=== PATIENT | female | born 1960 | race Caucasian/White ===

== ENCOUNTER 2016-05-17 15:58 | Inpatient (IN) | payer SELFPAY ==
[2016-05-17 17:14] LABS: MPV 9.1 fL (7.4-10.4)
[2016-05-17] MEDS ORDERED: MORPHINE 4 MG/ML INJECTION IV ONE (17:18)
[2016-05-17] MEDS ORDERED: ONDANSETRON HCL 4 MG/2 ML VIAL IV ONE (17:18)
[2016-05-17] MEDS ORDERED: ASPIRIN 325 MG TAB PO ONE (17:18)
[2016-05-17 17:26] LABS: BLOOD UREA NITROGEN 50 MG/DL (7-17); CALCIUM 8.5 MG/DL (8.4-10.2); CALCULATED OSMOLALITY 276 MOs/Kg (270-290); CHLORIDE 99 mEq/L (98-107); GLUCOSE 114 MG/DL (70-99); SODIUM LEVEL 136 mEq/L (137-146); TOTAL PROTEIN 7.4 G/DL (6.3-8.2)
[2016-05-17 17:32] LABS: SEG NEUTROPHIL 54 % (45-76)
[2016-05-17] MEDS: NS 1,000 ML IV SCH ×3 (17:33→21:23)
[2016-05-17 17:36] LABS: ABG Draw Site Left Radial; ABG Draw Tech SI; ALLEN'S TEST PASS; BEb -5.3 (+/- 2); TCO2 20.1 MMOL/L (23-27)
--- NOTE | 2016-05-17 17:52 | DIRPT ---
CLINICAL DATA: Cough congestion, shortness of breath for 4 days. EXAM: CHEST 2 VIEW COMPARISON: CT of the thorax dated 11/13/2015, chest radiograph dated 05/23/2014. FINDINGS: Cardiomediastinal silhouette is normal. Mediastinal contours appear intact. There is a dense right upper lobe airspace consolidation. No evidence of pleural effusion or pneumothorax. Osseous structures are without acute abnormality. Postsurgical changes in the right chest wall and right axilla are stable. Soft tissues are grossly normal. IMPRESSION: Dense right upper lobe airspace consolidation, which given patient's clinical history likely represents pneumonia. Follow-up to resolution, after empiric treatment, however is recommended to exclude obstructing endobronchial lesion. Electronically Signed By: Jacqueline Ramirez M.D. On: 05/17/2016 17:49
[2016-05-17] MEDS ORDERED: CEFTRIAXONE 1 GM in D5W 100 ML IV ONE (18:10)
--- NOTE | 2016-05-17 18:20 | EDPRACDOC ---
- General Information Information Source: Patient - History of Present Illness Onset: 5 DAYS HPI: PT PRESENTS TODAY WITH GENERAL MALAISE, COUGHING, SHOB, N/V X 1 FOR 5 DAYS. PT DOES NOT APPEAR TO BE IN DISTRESS, ALTHOUGH ABNORMAL VS WERE NOTED IN TRIAGE. NO OTHER COMPLAINTS. Shortness of Breath: Moderate Relevant History: Reports: Asthma Cough: Reports: Green Rhinorrhea: Reports: None Ear Symptoms: Reports: None SOB Worsens with: Reports: Exertion, Coughing SOB Improves with: Reports: Rest Associated Signs and symptoms: Reports: Cough, Nausea, Vomiting, Myalgia <StepanJulee Tao - Last Filed: 05/17/16 18:10> <Kamila Sosa - Last Filed: 05/17/16 18:54> - General Information Chief Complaint: Flu-Like Symptoms Stated Complaint: VOMITING/ COUGH Time Seen by Provider: 05/17/16 16:59 Allergies/Adverse Reactions: Allergies Allergy/AdvReac Type Severity Reaction Status Date / Time No Known Allergies Allergy Verified 05/17/16 16:40 ED Past Medical History - History Reviewed Yes Nurses notes reviewed and agree except as marked - Patient Medical History Cardiac History: Reports: Hypertension Respiratory History: Reports: Asthma, COPD GI/ History: Reports: Gastroesophageal Reflux Psychological History: Reports: Depression Systemic History: Reports: Cancer (R BREAST) Surgical History: Reports: Appendectomy - Social Medical History Smoking Status: Former smoker <StepanJulee tao - Last Filed: 05/17/16 18:10> EDM Review of Systems - Review of Systems ROS Negative Except as Marked: Yes All systems reviewed and were negative except as marked Constitutional: Fever, Fatigue Respiratory: Cough, Shortness of Breath Cardiovascular: No Symptoms Reported Gastrointestinal: Nausea, Vomiting Neurological: No Symptoms Reported Musculoskeletal: No Symptoms Reported Integumentary: No Symptoms Reported <Julee Ying Mello - Last Filed: 05/17/16 18:10> - Physical Exam Constitutional: Alert (Awake), No apparent distress Oriented to: Time, Person, Place Last recorded Vital Signs: Last Vital Signs Temp 98.0 F 05/17/16 16:39 Pulse 117 05/17/16 16:39 Resp 22 05/17/16 17:20 BP 95/53 L 05/17/16 16:39 Pulse Ox 93 05/17/16 16:39 Oxygen Pulse Oxygen Saturation 93 O2 Device Oxygen Flow Rate Fraction of Inspired Oxygen ( FIO2) - HEENT Head: Normal Eye Exam: Normal Oropharynx: Normal Tympanic Membrane: Normal ENT EAC: Normal Nose: No Symptoms Reported Neck: Normal, Denies Pain, Midline - Respiratory/Cardiovascular Respiratory: Normal - CTA Cardiovascular: Tachycardia - GI Palpation: Normal Tenderness: Non tender - Musculoskeletal Back: Normal Extremities: Normal - Integumentary Skin: Normal Lymphatics: Normal - Neurologic Cerebellar: Normal Mood Description: Normal Thought: Coherent Perception: Normal <Julee Ying - Last Filed: 05/17/16 18:10> - Physical Exam Last recorded Vital Signs: Last Vital Signs Temp 98.0 F 05/17/16 16:39 Pulse 110 05/17/16 18:15 Resp 22 05/17/16 18:15 BP 130/79 05/17/16 18:15 Pulse Ox 92 05/17/16 18:15 Oxygen Pulse Oxygen Saturation 92 O2 Device Nasal Cannula Oxygen Flow Rate 2 Fraction of Inspired Oxygen ( FIO2) <Kamila Sosa - Last Filed: 05/17/16 18:54> ED SOB MDM - Results Result Diagrams: 05/17/16 16:48 05/17/16 16:48 Results: WBC 12.8 xk/uL (3.8-10.8) H 05/17/16 16:48 RBC 4.47 xM/uL (4.20-5.40) 05/17/16 16:48 Hgb 12.3 g/dL (12.0-16.0) 05/17/16 16:48 Hct 37.6 % (36-47) 05/17/16 16:48 MCV 84 fL (81-99) 05/17/16 16:48 MCH 27.6 pg (27-32) 05/17/16 16:48 MCHC 32.8 g/dl (33-36) L 05/17/16 16:48 RDW 14.8 % (11.5-14.5) H 05/17/16 16:48 Plt Count 186 xk/uL (130-400) 05/17/16 16:48 MPV 9.1 fL (7.4-10.4) 05/17/16 16:48 Neut % (Auto) Cancelled 05/17/16 16:48 Lymph % (Auto) Cancelled 05/17/16 16:48 [place] % (Auto) Cancelled 05/17/16 16:48 Eos % (Auto) Cancelled 05/17/16 16:48 Baso % (Auto) Cancelled 05/17/16 16:48 Absolute Neuts (auto) Cancelled 05/17/16 16:48 Absolute Lymphs (auto) Cancelled 05/17/16 16:48 Seg Neuts % (Manual) 54 % (45-76) 05/17/16 16:48 Band Neutrophils % 44 % (0-5) H 05/17/16 16:48 Lymphocytes % (Manual) 1 % (17-44) L 05/17/16 16:48 Monocytes % (Manual) 1 % (0-10) 05/17/16 16:48 Absolute Neutrophils 12.54 xk/uL (1.7-8.2) H 05/17/16 16:48 Absolute Lymphocytes 0.13 xk/uL (0.65-4.75) L 05/17/16 16:48 Vacuolated Neuts 1+ 05/17/16 16:48 Toxic Granulation 1+ 05/17/16 16:48 Platelet Estimate Norm (NORMAL) 05/17/16 16:48 RBC Morphology 1+ aniso 05/17/16 16:48 Puncture Site Left radial 05/17/16 17:30 pH 7.370 pH UNITS (7.35-7.45) 05/17/16 17:30 pCO2 33.0 mmHg (35-45) L 05/17/16 17:30 pO2 52.0 mmHg (80-100) L 05/17/16 17:30 HCO3 19.1 MMOL/L (22-26) L 05/17/16 17:30 Total CO2 20.1 MMOL/L (23-27) L 05/17/16 17:30 Base Excess -5.3 (+/- 2) L 05/17/16 17:30 FiO2 % 21% 05/17/16 17:30 Specimen Drawn By Si 05/17/16 17:30 Sodium 136 mEq/L (137-146) L 05/17/16 16:48 Potassium 3.2 mEq/L (3.5-5.1) L 05/17/16 16:48 Chloride 99 mEq/L (98-107) 05/17/16 16:48 Carbon Dioxide 17 mMOL/L (22-33) L 05/17/16 16:48 Anion Gap 23 mEq/L (8-16) H 05/17/16 16:48 BUN 50 MG/DL (7-17) H 05/17/16 16:48 Creatinine 2.70 MG/DL (0.52-1.04) H 05/17/16 16:48 Estimated GFR (MDRD) 18 mL/min (>=60) L 05/17/16 16:48 Glucose 114 MG/DL (70-99) H 05/17/16 16:48 Calculated Osmolality 276 MOs/Kg (270-290) 05/17/16 16:48 Calcium 8.5 MG/DL (8.4-10.2) 05/17/16 16:48 Corrected Calcium 9.0 MG/DL (8.4-10.2) 05/17/16 16:48 Total Bilirubin 0.6 MG/DL (0.2-1.3) 05/17/16 16:48 AST 31 IU/L (14-36) 05/17/16 16:48 ALT 30 IU/L (9-52) 05/17/16 16:48 Alkaline Phosphatase 94 IU/L (38-126) 05/17/16 16:48 Troponin I < 0.01 ng/mL (<.04) 05/17/16 16:48 Taz-H-Quimzjflnps Pept 1900 pg/mL (0-900) H 05/17/16 16:48 Total Protein 7.4 G/DL (6.3-8.2) 05/17/16 16:48 Albumin 3.5 G/DL (3.5-5.0) 05/17/16 16:48 Lab Results 05/17/16 05/17/16 05/17/16 17:30 16:48 16:48 WBC 12.8 H RBC 4.47 Hgb 12.3 Hct 37.6 MCV 84 MCH 27.6 MCHC 32.8 L RDW 14.8 H Plt Count 186 MPV 9.1 Neut % (Auto) Cancelled Lymph % (Auto) Cancelled [place] % (Auto) Cancelled Eos % (Auto) Cancelled Baso % (Auto) Cancelled Absolute Neuts (auto) Cancelled Absolute Lymphs (auto) Cancelled Seg Neuts % (Manual) 54 Band Neutrophils % 44 H Lymphocytes % (Manual) 1 L Monocytes % (Manual) 1 Absolute Neutrophils 12.54 H Absolute Lymphocytes 0.13 L Vacuolated Neuts 1+ Toxic Granulation 1+ Platelet Estimate Norm RBC Morphology 1+ aniso Puncture Site Left radial pH 7.370 pCO2 33.0 L pO2 52.0 L HCO3 19.1 L Total CO2 20.1 L Base Excess -5.3 L FiO2 % 21% Specimen Drawn By Si Sodium 136 L Potassium 3.2 L Chloride 99 Carbon Dioxide 17 L Anion Gap 23 H BUN 50 H Creatinine 2.70 H Estimated GFR (MDRD) 18 L Glucose 114 H Calculated Osmolality 276 Calcium 8.5 Corrected Calcium 9.0 Total Bilirubin 0.6 AST 31 ALT 30 Alkaline Phosphatase 94 Troponin I < 0.01 Wfc-Q-Odtzxnyqyxb Pept 1900 H Total Protein 7.4 Albumin 3.5 - EKG EKG #1 EKG Time: 16:43 -: Yes EKG interpreted by me Rate: bpm: 118 [place]: Normal Rhythm: ST Block: None Hypertrophy: None ST: Normal <Julee Ying - Last Filed: 05/17/16 18:10> - Results Result Diagrams: 05/17/16 16:48 05/17/16 16:48 Results: WBC 12.8 xk/uL (3.8-10.8) H 05/17/16 16:48 RBC 4.47 xM/uL (4.20-5.40) 05/17/16 16:48 Hgb 12.3 g/dL (12.0-16.0) 05/17/16 16:48 Hct 37.6 % (36-47) 05/17/16 16:48 MCV 84 fL (81-99) 05/17/16 16:48 MCH 27.6 pg (27-32) 05/17/16 16:48 MCHC 32.8 g/dl (33-36) L 05/17/16 16:48 RDW 14.8 % (11.5-14.5) H 05/17/16 16:48 Plt Count 186 xk/uL (130-400) 05/17/16 16:48 MPV 9.1 fL (7.4-10.4) 05/17/16 16:48 Neut % (Auto) Cancelled 05/17/16 16:48 Lymph % (Auto) Cancelled 05/17/16 16:48 [place] % (Auto) Cancelled 05/17/16 16:48 Eos % (Auto) Cancelled 05/17/16 16:48 Baso % (Auto) Cancelled 05/17/16 16:48 Absolute Neuts (auto) Cancelled 05/17/16 16:48 Absolute Lymphs (auto) Cancelled 05/17/16 16:48 Seg Neuts % (Manual) 54 % (45-76) 05/17/16 16:48 Band Neutrophils % 44 % (0-5) H 05/17/16 16:48 Lymphocytes % (Manual) 1 % (17-44) L 05/17/16 16:48 Monocytes % (Manual) 1 % (0-10) 05/17/16 16:48 Absolute Neutrophils 12.54 xk/uL (1.7-8.2) H 05/17/16 16:48 Absolute Lymphocytes 0.13 xk/uL (0.65-4.75) L 05/17/16 16:48 Vacuolated Neuts 1+ 05/17/16 16:48 Toxic Granulation 1+ 05/17/16 16:48 Platelet Estimate Norm (NORMAL) 05/17/16 16:48 RBC Morphology 1+ aniso 05/17/16 16:48 Puncture Site Left radial 05/17/16 17:30 pH 7.370 pH UNITS (7.35-7.45) 05/17/16 17:30 pCO2 33.0 mmHg (35-45) L 05/17/16 17:30 pO2 52.0 mmHg (80-100) L 05/17/16 17:30 HCO3 19.1 MMOL/L (22-26) L 05/17/16 17:30 Total CO2 20.1 MMOL/L (23-27) L 05/17/16 17:30 Base Excess -5.3 (+/- 2) L 05/17/16 17:30 FiO2 % 21% 05/17/16 17:30 Specimen Drawn By Si 05/17/16 17:30 Sodium 136 mEq/L (137-146) L 05/17/16 16:48 Potassium 3.2 mEq/L (3.5-5.1) L 05/17/16 16:48 Chloride 99 mEq/L (98-107) 05/17/16 16:48 Carbon Dioxide 17 mMOL/L (22-33) L 05/17/16 16:48 Anion Gap 23 mEq/L (8-16) H 05/17/16 16:48 BUN 50 MG/DL (7-17) H 05/17/16 16:48 Creatinine 2.70 MG/DL (0.52-1.04) H 05/17/16 16:48 Estimated GFR (MDRD) 18 mL/min (>=60) L 05/17/16 16:48 Glucose 114 MG/DL (70-99) H 05/17/16 16:48 Calculated Osmolality 276 MOs/Kg (270-290) 05/17/16 16:48 Calcium 8.5 MG/DL (8.4-10.2) 05/17/16 16:48 Corrected Calcium 9.0 MG/DL (8.4-10.2) 05/17/16 16:48 Total Bilirubin 0.6 MG/DL (0.2-1.3) 05/17/16 16:48 AST 31 IU/L (14-36) 05/17/16 16:48 ALT 30 IU/L (9-52) 05/17/16 16:48 Alkaline Phosphatase 94 IU/L (38-126) 05/17/16 16:48 Troponin I < 0.01 ng/mL (<.04) 05/17/16 16:48 Eht-S-Pgqcmnblmei Pept 1900 pg/mL (0-900) H 05/17/16 16:48 Total Protein 7.4 G/DL (6.3-8.2) 05/17/16 16:48 Albumin 3.5 G/DL (3.5-5.0) 05/17/16 16:48 Lab Results 05/17/16 05/17/16 05/17/16 17:30 16:48 16:48 WBC 12.8 H RBC 4.47 Hgb 12.3 Hct 37.6 MCV 84 MCH 27.6 MCHC 32.8 L RDW 14.8 H Plt Count 186 MPV 9.1 Neut % (Auto) Cancelled Lymph % (Auto) Cancelled [place] % (Auto) Cancelled Eos % (Auto) Cancelled Baso % (Auto) Cancelled Absolute Neuts (auto) Cancelled Absolute Lymphs (auto) Cancelled Seg Neuts % (Manual) 54 Band Neutrophils % 44 H Lymphocytes % (Manual) 1 L Monocytes % (Manual) 1 Absolute Neutrophils 12.54 H Absolute Lymphocytes 0.13 L Vacuolated Neuts 1+ Toxic Granulation 1+ Platelet Estimate Norm RBC Morphology 1+ aniso Puncture Site Left radial pH 7.370 pCO2 33.0 L pO2 52.0 L HCO3 19.1 L Total CO2 20.1 L Base Excess -5.3 L FiO2 % 21% Specimen Drawn By Si Sodium 136 L Potassium 3.2 L Chloride 99 Carbon Dioxide 17 L Anion Gap 23 H BUN 50 H Creatinine 2.70 H Estimated GFR (MDRD) 18 L Glucose 114 H Calculated Osmolality 276 Calcium 8.5 Corrected Calcium 9.0 Total Bilirubin 0.6 AST 31 ALT 30 Alkaline Phosphatase 94 Troponin I < 0.01 Enl-K-Agukercxvyy Pept 1900 H Total Protein 7.4 Albumin 3.5 <Kamila Sosa N - Last Filed: 05/17/16 18:54> - Departure Disposition: Admit IP To This Hospital <Julee Ying K - Last Filed: 05/17/16 18:10> - Departure Education/Counseling Given To: Patient Education/Counseling Given Regarding: Diagnosis, Treatment, Prognosis Decision to Admit Time: 18:30 Decision to admit date: 05/17/16 Decision to admit: from ED - Physician Consulted Hospitalist Time Called: 18:30 Provider Called: Anderson Martinez [employer] Returned Call: 18:30 <Kamila Sosa N - Last Filed: 05/17/16 18:54> - Departure Condition: Fair Final Diagnosis: Hypoxia, Prerenal azotemia, Community acquired bacterial pneumonia Sepsis Qualifiers: Sepsis type: sepsis due to unspecified organism Qualified Code(s): A41.9 - Sepsis, unspecified organism Referrals: Nataly Wilson MD [Primary Care Provider] - One Week
[2016-05-17] MEDS ORDERED: ACETAMINOPHEN 325 MG/TAB TABLET PO PRN (18:39)
[2016-05-17] MEDS ORDERED: TUSSIONEX 5 ML ORAL SYRINGE PO PRN (18:39)
[2016-05-17] MEDS ORDERED: PROMETHAZINE 25 MG/ML VIAL IV PRN (18:39)
[2016-05-17] MEDS ORDERED: SENNA CONCENTRATE TAB PO PRN (18:39)
[2016-05-17] MEDS ORDERED: ACETAMINOPHEN 325 MG SUPP PR PRN (18:39)
[2016-05-17] MEDS ORDERED: BISACODYL 10 MG SUPP PR PRN (18:39)
[2016-05-17] MEDS ORDERED: METOCLOPRAMIDE 10 MG/2 ML VIAL IV PRN (18:42)
[2016-05-17] MEDS ORDERED: OXYCODONE HCL 5 MG TABLET PO PRN (18:42)
[2016-05-17] MEDS ORDERED: TEMAZEPAM 15 MG CAP PO PRN (18:42)
[2016-05-17 18:47] LABS: PARTIAL THROMB. TIME 42.4 SEC (22-35); PT-INR 1.4
--- NOTE | 2016-05-17 18:47 | HISTPHYS ---
- Chief Complaint Fever sore throat shortness breath coughing over the past 4 days and started coughing up blood last night right-sided chest pain past 2 nights worse with deep breath or cough - History of Present Illness Patient very pleasant 56-year-old white female who comes in the emergency room surrounded by her family today with a 4 day history of sore throat worsening cough and developed a fever 2 nights ago with hemoptysis last night. She complains of right-sided chest pain that is sharp and pleuritic in nature with deep breath or cough. She has a history of pneumonia 2005. She also mentions she had breast cancer treated 1998 and and received intravenous chemotherapy. She was told that she was cancer free 1999 but still gets follow- ups. She also mentions some mild diarrhea recently. She also tells me that she had a Port-A-Cath clot with what sounds like a saddle pulmonary embolus back in 1998. She indicated that she was quite ill at that point time. She also tells me she thinks she had a stroke when she developed some left facial discomfort and then in 2013 a workup of her headache showed a left basal gangliar stroke that was not present on her brain MRI January 2011. Her CT and chest x-ray show evidence a dense right upper lobe pulmonary infiltrate/ consolidation. She denies any exposure to anyone with tuberculosis and has not had a history of TB. She quit smoking 2 years ago. - Medical History Cardiac History: Reports: Hypertension Respiratory History: Reports: Asthma, COPD GI/ History: Reports: Gastroesophageal Reflux Musculoskeletal History: Reports: Other (Complains of fibromyalgia like symptoms ) Systemic History: Reports: Cancer (R BREAST) Neurological History: Reports: Cerebrovascular Accident Psychological History: Reports: Depression - Surgical History Reports: Appendectomy, Hysterectomy (Partial hysterectomy), Other (Csection, right breast cancer removal, Port-A-Cath & thrombosis of it) - Medictions/Allergies Allergies No Known Allergies Allergy (Verified 05/17/16 16:40) Current Medication List: Reviewed - Family History Reports: Hypertension - Social History Travel Outside of [place] in the Last 3 Months?: No Lives: with Spouse Smoking Status: Former smoker (Quit smoking 2 years ago) Social History: Denies: Substance Use Disorder - Review of Systems Constitutional: Chills, Fever, Diaphoresis, Fatigue Eyes: No Symptoms Reported (No blurry vision, visual changes, eye pain, or eye redness.) Ears: No Symptoms Reported (No ear pain or discharge) Nose: No Symptoms Reported (No nasal discharge/congestion or bleeding) Mouth: No Symptoms Reported (No oropharyngeal lesions or erythema) Throat/Neck: No Symptoms Reported (No throat pain or swelling.No oropharyngeal lesions or erythema.) Respiratory: Cough, Hemoptysis, Sputum Cardiovascular: Palpitations Gastrointestinal: Nausea, Vomiting, Diarrhea Genitourinary: No Symptoms Reported (No dysuria or hematuria.) Neurological: Dizziness Musculoskeletal:: No Symptoms Reported Integumentary: No Symptoms Reported (no rashes or lesions) Allergic/Immunologic: No Symptoms Reported (no rashes or lesions) Hematologic: No Symptoms Reported (No chronic anemia, bleeding, or easy bruising.), Other (Lymphatics- no lymph node swelling or pain.) Endocrine: No Symptoms Reported (No thyroid issues, polyuria, or polydipsia.) Psychiatric: No Symptoms Reported (Fully oriented, with normal and appropriate affect.) - Physical Exam Vital Signs: Initial Vitals Temperature 98.0 F 05/17/16 16:39 Pulse Rate 117 05/17/16 16:39 Respiratory Rate 20 05/17/16 16:39 Blood Pressure 95/53 L 05/17/16 16:39 Pulse Oxygen Saturation 93 05/17/16 16:39 Constitutional: Alert (Awake, Fully oriented. Normal and appropriate affect.Well appearing. Well nourished.), Restless Oriented to: Time, Person, Place - HEENT Head: Normal (normocephalic, atraumatic.), Other (No cervical lymphadenopathy. No supraclavicular lymphadenopathy. Neck: No palpable mass, supple , trachea midline.) Eye: Normal (pupils equal, reactive to light, and round; EOMI, Sclera white) Oropharynx: Normal (Pharynx: Moist without exudate,Gums-no swelling, No oropharyngeal lesions or erythema, Mucous membranes are dry.) ENT EAC: Normal (No oropharyngeal lesions or erythema. Mucous membranes are dry. ) TMJ: Normal Nose: No Symptoms Reported (septum midline, Nares patent, without discharge or bleeding.) Respiratory: Diminished, Rhonchi, Wheezes (Occasional expiratory wheeze). negative: Rales Cardiovascular: Normal (RRR , Normal S1, S2. No murmurs, rubs, or gallops. PMI non-displaced. Carotids: no carotid bruits. No bradycardia or tachycardia. DP pulses 2+ bilaterally.) - GI Auscultation: Normal (normal active sounds) Palpation: Normal (Soft,non distended,nontender. No hepatosplenomegaly.) Tenderness: Non tender (No rebound or guarding) Kendall's Sign: Negative - Musculoskeletal Back: Normal (Non-Tender) Extremities: Normal (Normal tone, DP pulses 2+ bilaterally, No cyanosis or edema bilaterally, FROM bilaterally.) Spine: non-tender, normal alignment, normal inspection, limited range of motion - Integumentary Skin: Normal (Clean, dry, and intact. No rashes. No lesions.) Lymphatics: Normal (No cervical lymphadenopathy. No supraclavicular lymphadenopathy.) - Neurologic Memory Impaired: Normal Motor Function: Normal (Motor 5/5 throughout.Normal tone, Pulses 2+ No cyanosis or edema, FROM) Cranial Nerve: Normal (CN II-XII intact sensation, strength 5/5) Cerebellar: Normal. negative: Ataxia, Past-Pointing, Tremor Mood Description: Normal (Fully oriented. Normal and appropriate affect.) Perception: Normal (Normal and appropriate affect.) - Focused CV Perfusion Exam Vital Signs: Last Vital Signs Temp 98.0 F 05/17/16 16:39 Pulse 110 05/17/16 18:15 Resp 22 05/17/16 18:15 BP 130/79 05/17/16 18:15 Pulse Ox 92 05/17/16 18:15 - Lab Results 05/17/16 16:48 05/17/16 16:48 Laboratory Results - last 24 hr 05/17/16 05/17/16 05/17/16 16:48 16:48 16:48 WBC 12.8 H RBC 4.47 Hgb 12.3 Hct 37.6 MCV 84 MCH 27.6 MCHC 32.8 L RDW 14.8 H Plt Count 186 MPV 9.1 Neut % (Auto) Cancelled Lymph % (Auto) Cancelled [place] % (Auto) Cancelled Eos % (Auto) Cancelled Baso % (Auto) Cancelled Absolute Neuts (auto) Cancelled Absolute Lymphs (auto) Cancelled Seg Neuts % (Manual) 54 Band Neutrophils % 44 H Lymphocytes % (Manual) 1 L Monocytes % (Manual) 1 Absolute Neutrophils 12.54 H Absolute Lymphocytes 0.13 L Vacuolated Neuts 1+ Toxic Granulation 1+ Platelet Estimate Norm RBC Morphology 1+ aniso PT INR APTT Puncture Site pH pCO2 pO2 HCO3 Total CO2 Base Excess FiO2 % Specimen Drawn By Sodium 136 L Potassium 3.2 L Chloride 99 Carbon Dioxide 17 L Anion Gap 23 H BUN 50 H Creatinine 2.70 H Estimated GFR (MDRD) 18 L Glucose 114 H Calculated Osmolality 276 Calcium 8.5 Corrected Calcium 9.0 Total Bilirubin 0.6 AST 31 ALT 30 Alkaline Phosphatase 94 Troponin I < 0.01 [id number] Pept 1900 H Total Protein 7.4 Albumin 3.5 TSH 1.21 Urine Color Urine Clarity Urine pH Ur Specific [place] Urine Protein Urine Glucose (UA) Urine Ketones Urine Occult Blood Urine Nitrite Urine Bilirubin Urine Urobilinogen Ur Leukocyte Esterase Urine RBC Urine WBC Ur Epithelial Cells Urine Bacteria Hyaline Casts Urine Mucus 05/17/16 05/17/16 05/17/16 17:10 17:30 19:47 WBC RBC Hgb Hct MCV MCH MCHC RDW Plt Count MPV Neut % (Auto) Lymph % (Auto) [place] % (Auto) Eos % (Auto) Baso % (Auto) Absolute Neuts (auto) Absolute Lymphs (auto) Seg Neuts % (Manual) Band Neutrophils % Lymphocytes % (Manual) Monocytes % (Manual) Absolute Neutrophils Absolute Lymphocytes Vacuolated Neuts Toxic Granulation Platelet Estimate RBC Morphology PT 14.0 H INR 1.4 APTT 42.4 H Puncture Site Left radial pH 7.370 pCO2 33.0 L pO2 52.0 L HCO3 19.1 L Total CO2 20.1 L Base Excess -5.3 L FiO2 % 21% Specimen Drawn By Si Sodium Potassium Chloride Carbon Dioxide Anion Gap BUN Creatinine Estimated GFR (MDRD) Glucose Calculated Osmolality Calcium Corrected Calcium Total Bilirubin AST ALT Alkaline Phosphatase Troponin I [id number]-G-Ooyltzwdjkx Pept Total Protein Albumin TSH Urine Color Julee Urine Clarity Sl cldy Urine pH 6.0 Ur Specific [place] 1.025 Urine Protein 2+ H Urine Glucose (UA) Neg Urine Ketones Neg Urine Occult Blood 1+ H Urine Nitrite Neg Urine Bilirubin Neg Urine Urobilinogen <2.0 Ur Leukocyte Esterase 2+ H Urine RBC 2-5 Urine WBC 20-30 H Ur Epithelial Cells 3+ Urine Bacteria Few Hyaline Casts 2-5 H Urine Mucus Sm amt 05/17/16 05/17/16 20:09 22:45 WBC RBC Hgb Hct MCV MCH MCHC RDW Plt Count MPV Neut % (Auto) Lymph % (Auto) [place] % (Auto) Eos % (Auto) Baso % (Auto) Absolute Neuts (auto) Absolute Lymphs (auto) Seg Neuts % (Manual) Band Neutrophils % Lymphocytes % (Manual) Monocytes % (Manual) Absolute Neutrophils Absolute Lymphocytes Vacuolated Neuts Toxic Granulation Platelet Estimate RBC Morphology PT INR APTT Puncture Site pH pCO2 pO2 HCO3 Total CO2 Base Excess FiO2 % Specimen Drawn By Sodium Potassium Chloride Carbon Dioxide Anion Gap BUN Creatinine Estimated GFR (MDRD) Glucose Calculated Osmolality Calcium Corrected Calcium Total Bilirubin AST ALT Alkaline Phosphatase Troponin I < 0.01 < 0.01 Dec-D-Uwygytfbwtn Pept Total Protein Albumin TSH Urine Color Urine Clarity Urine pH Ur Specific [place] Urine Protein Urine Glucose (UA) Urine Ketones Urine Occult Blood Urine Nitrite Urine Bilirubin Urine Urobilinogen Ur Leukocyte Esterase Urine RBC Urine WBC Ur Epithelial Cells Urine Bacteria Hyaline Casts Urine Mucus - Diagnostic Findings CT of chest: IMPRESSION: Near complete consolidative changes of the right upper lobe with partial consolidation of the right middle lobe most compatible with pneumonia. Clinical correlation and follow-up resolution is recommended. - Assessment (1) Sepsis A41.9 - SEPSIS, UNSPECIFIED ORGANISM Acute Present on Admission: Yes Qualifiers: Sepsis type: sepsis due to unspecified organism Qualified Code(s): A41.9 - Sepsis, unspecified organism Hypokalemia has been addressed with IV fluids to help her blood pressure and close monitoring in the progressive cardiac Unit is necessary. (2) Acute renal failure N17.9 - ACUTE KIDNEY FAILURE, UNSPECIFIED Acute Present on Admission: Yes Qualifiers: Acute renal failure type: with acute tubular necrosis Qualified Code(s): N17.0 - Acute kidney failure with tubular necrosis Multifactorial in etiology. She has taken some ibuprofen within the past month although denies more than 4 over that period of time. Hypotension could be leading to some ATN. Dehydration is contributing to this issue was well. (3) Dysphagia R13.10 - DYSPHAGIA, UNSPECIFIED Acute Present on Admission: Yes Qualifiers: Dysphagia type: oropharyngeal phase Qualified Code(s): R13.12 - Dysphagia, oropharyngeal phase Speech therapy consult is ordered. (4) Cerebral arteriosclerosis with history of previous stroke I67.2 - CEREBRAL ATHEROSCLEROSIS; Z86.73 - PRSNL HX OF TIA (TIA), AND CEREB INFRC W/O RESID DEFICITS Acute Present on Admission: Yes Stroke noted on CT of brain and suspect dysphagia may have led to her pneumonia. (5) Community acquired bacterial pneumonia J15.9 - UNSPECIFIED BACTERIAL PNEUMONIA Acute Present on Admission: Yes She could have aspiration pneumonia given the previous stroke and location of the infection so will cover her with antibiotic for anaerobes and atypicals. Zosyn and Zithromax are my choices with probiotic added. (6) Hypoxia R09.02 - HYPOXEMIA Acute Present on Admission: Yes Associated with her severe right upper lobe pneumonia. - Plan Due to the presence of and / or the risk of deterioration, my attendance to this patient required critical care time, including assessment/reassessment, documentation, ordering and interpreting ancillary studies, discussion with staff and consultants,patient and family, and excludes time spent on separately billable procedures. This individual is critically ill and in danger of dying. Case Care Discussed with: Patient, Nursing Staff Total Time: Critical care time spent 1 hour 24 minutes Critical Care: Yes Code: 291 (292)
[2016-05-17] MEDS ORDERED: ENOXAPARIN 30 MG/0.3 ML PFS SQ SCH (20:00)
[2016-05-17 20:07] LABS: LEUKOCYTES/URINE 2+ (NEGATIVE); NITRITE/URINE NEG (NEGATIVE); URINE OCCULT BLOOD 1+ (NEG/TRACE); WBC/URINE 20-30 (0-5)
[2016-05-17] MEDS: Albuterol/Ipratropium Neb 3 ML NEB NEB SCH (20:10)
[2016-05-17] MEDS: AZITHROMYCIN 500 MG in D5W 250 ML IV SCH (21:25)
[2016-05-17] MEDS: PROBIOTIC BLEND TAB PO SCH (21:26)
[2016-05-17] MEDS: BENZONATATE 100 MG PERLES PO SCH (21:26)
[2016-05-17] MEDS ORDERED: CHAPSTICK LIP BALM ONE (21:30)
[2016-05-18] MEDS: ALBUTEROL 0.083% 3 ML NEB NEB PRN (00:25)
[2016-05-18] MEDS ORDERED: Vaccine Screening Complete SCH (01:00)
[2016-05-18] MEDS ORDERED: PROMETHAZINE 25 MG/ML VIAL IV PRN (02:11)
--- NOTE | 2016-05-18 02:20 | DIRPT ---
CLINICAL DATA: 56-year-old female with right upper lobe pneumonia. History of breast cancer. EXAM: CT CHEST WITHOUT CONTRAST TECHNIQUE: Multidetector CT imaging of the chest was performed following the standard protocol without IV contrast. COMPARISON: Chest radiograph dated 05/17/[address] dated 11/13/2015 FINDINGS: Evaluation of this exam is limited in the absence of intravenous contrast. There is near complete consolidative changes of the right upper lobe with air bronchograms most compatible with pneumonia. There is also partial consolidation of the right middle lobe as well as small patchy ground-glass airspace densities in the right lower lobe. The left lung is clear. The central airways are patent. The thoracic aorta and central pulmonary arteries are grossly unremarkable on this noncontrast study. There is no cardiomegaly. Trace pericardial effusion measuring approximately 5 mm in axial thickness. Evaluation of the nancy is limited in the absence of contrast as well as due to consolidative changes of the right upper lobe. Right paratracheal lymph node measures up to 1.4 cm. There is apparent fullness of the right hilum which may represent adenopathy. Small hiatal hernia. Esophagus is grossly unremarkable. No thyroid nodule identified. There is no axillary adenopathy. Right axillary surgical clips noted. There is slight skin irregularity of the right breast at the nipple. Correlation with clinical exam and mammographic studies recommended. No soft tissue lesion identified. The osseous structures appear intact. There is apparent irregularity of the upper pole of the right kidney. This area is not well evaluated and only partially visualized on the CT. Ultrasound may provide better evaluation. The visualized upper abdomen is otherwise unremarkable. IMPRESSION: Near complete consolidative changes of the right upper lobe with partial consolidation of the right middle lobe most compatible with pneumonia. Clinical correlation and follow-up resolution is recommended. Electronically Signed By: Jonatan Damon M.D. On: 05/18/2016 02:18
[2016-05-18] MEDS: Albuterol/Ipratropium Neb 3 ML NEB NEB SCH ×4 (02:30→19:30)
[2016-05-18] MEDS: PIPERACILLIN AND TAZOBACTAM 4.5 GM in D5W 100 ML IV SCH ×3 (02:58→21:00)
[2016-05-18] MEDS ORDERED: POTASSIUM CHLORIDE 20 MEQ TAB PO SCH (03:00)
[2016-05-18] MEDS: KCl 10 mEq/100 ml Premix (Run) 10 MEQ/100 ML RTU IV SCH ×3 (03:45→05:39)
[2016-05-18] MEDS: NS 1,000 ML IV SCH ×4 (03:45→17:01)
[2016-05-18] MEDS: BENZONATATE 100 MG PERLES PO SCH ×3 (03:46→19:06)
[2016-05-18] MEDS: PANTOPRAZOLE 40 MG TAB PO SCH (03:47)
[2016-05-18] MEDS ORDERED: FLUTICASONE PROPIONATE 16 GM BOT NAS SCH (04:00)
[2016-05-18 04:15] LABS: ALLEN'S TEST PASS; BEb -5.9 (+/- 2); TCO2 19.6 MMOL/L (23-27)
[2016-05-18 04:16] LABS: ABG Draw Site Right Radial
[2016-05-18 04:46] LABS: MPV 9.4 fL (7.4-10.4)
[2016-05-18 04:57] LABS: BLOOD UREA NITROGEN 45 MG/DL (7-17); CALCIUM 7.1 MG/DL (8.4-10.2); CALCULATED OSMOLALITY 273 MOs/Kg (270-290); CHLORIDE 103 mEq/L (98-107); GLUCOSE 119 MG/DL (70-99); SODIUM LEVEL 135 mEq/L (137-146)
[2016-05-18] MEDS ORDERED: LORAZEPAM 1 MG TAB PO PRN (05:05)
[2016-05-18] MEDS ORDERED: ATENOLOL 50 MG TAB PO ONE (05:07)
[2016-05-18 05:17] LABS: SEG NEUTROPHIL 71 % (45-76)
[2016-05-18] MEDS ORDERED: Non-Formulary Medication ITEM (Omeprazole 40 MG) PO SCH (09:00)
[2016-05-18] MEDS: FLUTICASONE PROPIONATE 16 GM BOT NAS SCH (09:23)
[2016-05-18] MEDS: CETIRIZINE HCL 10 MG TAB PO SCH (10:30)
[2016-05-18] MEDS: SERTRALINE HCL 50 MG TAB PO SCH (10:30)
--- NOTE | 2016-05-18 11:11 | DIRPT ---
CLINICAL DATA: Acute renal failure EXAM: RENAL / URINARY TRACT ULTRASOUND COMPLETE COMPARISON: CT scan dated August 12, 2015 FINDINGS: Right Kidney: Length: 12.6 cm. Echogenicity within normal limits. No mass or hydronephrosis visualized. Left Kidney: Length: 12.1 cm. Echogenicity within normal limits. No mass or hydronephrosis visualized. Bladder: Bilateral ureteral jets are observed. IMPRESSION: Normal renal ultrasound examination. No obstruction or renal mass is observed. Electronically Signed By: Sriram Bobby M.D. On: 05/18/2016 11:08
[2016-05-18] MEDS: PROBIOTIC BLEND TAB PO SCH ×2 (11:42→17:01)
[2016-05-18] MEDS: ATENOLOL 50 MG TAB PO SCH (11:43)
--- NOTE | 2016-05-18 12:15 | CAPUECHO ---
INDICATION: CHF HEIGHT: 175.3 cm (5 ft 9.0 in) WEIGHT: 81.2 kg (179.0 lbs) BP: 115/65 BSA: 1.531935 m MEASUREMENTS 2D RVIDd: 2.8 cm LVOT Diam: 2.0 cm LA Diam: 3.7 cm EF Biplane: 59.63 % LAESV MOD A4C: 64.3 ml LAESV MOD A2C: 43.2 ml LAESV Index (A-L): 31.27 ml/m M-MODE IVSd: 0.7 cm LVIDd: 5.4 cm LVPWd: 0.7 cm LVIDs: 3.6 cm EF(Teich): 63 % Ao Diam: 3.2 cm LA Diam: 3.9 cm DOPPLER MV E Yakov: 0.78 m/s MV A Yakov: 0.56 m/s MV PHT: 38.45 ms MVA By PHT: 5.72 cm LVOT Vmax: 1.08 m/s AV Vmax: 1.26 m/s ESTEVAN Vmax, Pt: 2.60 cm TR Vmax: 3.13 m/s TR maxP mmHg RVSP: 55.57 mmHg FINDINGS ------- Procedure:2D images, m-mode, color and spectral Doppler were obtained and reviewed. ECG rhythm:Sinus rhythm. Study quality:This was a technically adequate study. Patient on vinity mask. Left Ventricle:The left ventricular size is normal. Left ventricular wall thickness is normal. T here is normal global left ventricular contractility. Overall left ventricular systolic function i s normal with, an EF between 55 - 60 %. The diastolic filling pattern indicates impaired relaxatio n. Right Ventricle:The right ventricle is normal in size and function. Left Atrium:The left atrium is normal in size. Right Atrium:The right atrium is normal in size and function. Aortic Valve:The aortic valve is trileaflet and appears structurally normal. There is mild aortic valve sclerosis. Mitral Valve:Normal appearing mitral valve. There is trace mitral regurgitation. Tricuspid Valve:The tricuspid valve appears structurally normal. [id number] tricuspid regurg itation present. The right ventricular systolic pressure, as measured by Doppler, is 56mmHg. Pulmonic Valve:The pulmonic valve is normal. There is no pulmonic regurgitation present. Aorta:The aortic root, ascending aorta and aortic arch appear normal. IVC:Normal inferior vena cava with normal inspiratory collapse. Subcostal TDS. Pericardium:Echo free space may represent effusion or a pericardial fat pad. CONCLUSIONS 1. The left ventricular size is normal. 2. Overall left ventricular systolic function is normal with, an EF between 55 - 60 %. 3. The diastolic filling pattern indicates impaired relaxation. 4. [id number]-[id number] tricuspid regurgitation present. 5. The right ventricular systolic pressure, as measured by Doppler, is 56mmHg. Electronically Signed By: Drake Fry MD -- Electronically Signed On: 12:14:08
--- NOTE | 2016-05-18 16:43 | GENMEDPROG ---
Chief Complaint: Acutely ill. Very congested and short of breath. Somewhat restless at times. Oxygenation is somewhat better on Venti mask. Notes Reviewed: Yes Events from last night noted and discussed with Clinical Staff Current Medication List: Reviewed Currently: Reports: Cough, Wheezing, MCHUGH, SOB. Denies: Nausea and Vomiting, Abdominal Pain, Chest Pain DVT Prophylaxis: Yes - Physical Examination Vital Signs and I&O: Last Vital Signs Temp 99.8 F 05/18/16 16:00 Pulse 92 05/18/16 16:00 Resp 20 05/18/16 16:00 BP 118/67 05/18/16 16:00 Pulse Ox 90 L 05/18/16 16:00 Oxygen Pulse Oxygen Saturation 90 O2 Device Venturi Mask Oxygen Flow Rate 10 Fraction of Inspired Oxygen ( 45 FIO2) Intake & Output 05/15/16 05/16/16 05/17/16 05/18/16 23:59 23:59 23:59 23:59 Intake Total 2100 240 Output Total 1050 Balance 2100 -810 Patient's weight 81.012 kg 81.601 kg General: Alert, Oriented x3, Cooperative, Moderate distress. negative: Well appearing (Acutely ill-appearing) HEENT: Normal, PERRLA, EOMI, Anicteric Sclera Neck: Non-tender, Full range of motion, Normal Trachea alignment, Normal inspection. negative: JVD Lymphatics: Normal (No cervical lymphadenopathy. No supraclavicular lymphadenopathy.). negative: Adenopathy Respiratory: Diminished, Rhonchi, Wheezes (Occasional expiratory wheeze). negative: Rales Cardiovascular: Regular rate and rhythm, No Gallops,Rubs/Murmurs GI: Normal bowel sounds, Soft, Non tender, No hepatospenomegaly, No masses Extremities/Musculoskeletal: Normal pulses. negative: Tenderness, Swelling, Edema Skin: Warm,Dry and Intact, No rashes, No breakdown, No significant lesion Neurological: Normal speech, Strength at 5/5 X4 ext, Normal tone, Cranial nerves 3-12 NL Psych/Mental Status: Appropriate, Cooperative, Anxious Lab/DI/Studies Reviewed: Laboratory Results - last 24 hr 05/17/16 05/17/16 05/17/16 16:48 16:48 16:48 WBC 12.8 H RBC 4.47 Hgb 12.3 Hct 37.6 MCV 84 MCH 27.6 MCHC 32.8 L RDW 14.8 H Plt Count 186 MPV 9.1 Neut % (Auto) Cancelled Lymph % (Auto) Cancelled [place] % (Auto) Cancelled Eos % (Auto) Cancelled Baso % (Auto) Cancelled Absolute Neuts (auto) Cancelled Absolute Lymphs (auto) Cancelled Seg Neuts % (Manual) 54 Band Neutrophils % 44 H Lymphocytes % (Manual) 1 L Monocytes % (Manual) 1 Absolute Neutrophils 12.54 H Absolute Lymphocytes 0.13 L Vacuolated Neuts 1+ Toxic Granulation 1+ Platelet Estimate Norm RBC Morphology 1+ aniso PT INR APTT Puncture Site pH pCO2 pO2 HCO3 Total CO2 Base Excess FiO2 % Specimen Drawn By Sodium 136 L Potassium 3.2 L Chloride 99 Carbon Dioxide 17 L Anion Gap 23 H BUN 50 H Creatinine 2.70 H Estimated GFR (MDRD) 18 L Glucose 114 H Calculated Osmolality 276 Calcium 8.5 Corrected Calcium 9.0 Total Bilirubin 0.6 AST 31 ALT 30 Alkaline Phosphatase 94 Troponin I < 0.01 [id number]-Fnxskakysuz Pept 1900 H Total Protein 7.4 Albumin 3.5 TSH 1.21 Urine Color Urine Clarity Urine pH Ur Specific [place] Urine Protein Urine Glucose (UA) Urine Ketones Urine Occult Blood Urine Nitrite Urine Bilirubin Urine Urobilinogen Ur Leukocyte Esterase Urine RBC Urine WBC Ur Epithelial Cells Urine Bacteria Hyaline Casts Urine Mucus 05/17/16 05/17/16 05/17/16 17:10 17:30 19:47 WBC RBC Hgb Hct MCV MCH MCHC RDW Plt Count MPV Neut % (Auto) Lymph % (Auto) [place] % (Auto) Eos % (Auto) Baso % (Auto) Absolute Neuts (auto) Absolute Lymphs (auto) Seg Neuts % (Manual) Band Neutrophils % Lymphocytes % (Manual) Monocytes % (Manual) Absolute Neutrophils Absolute Lymphocytes Vacuolated Neuts Toxic Granulation Platelet Estimate RBC Morphology PT 14.0 H INR 1.4 APTT 42.4 H Puncture Site Left radial pH 7.370 pCO2 33.0 L pO2 52.0 L HCO3 19.1 L Total CO2 20.1 L Base Excess -5.3 L FiO2 % 21% Specimen Drawn By Si Sodium Potassium Chloride Carbon Dioxide Anion Gap BUN Creatinine Estimated GFR (MDRD) Glucose Calculated Osmolality Calcium Corrected Calcium Total Bilirubin AST ALT Alkaline Phosphatase Troponin I Ehq-I-Soyegnbsmqy Pept Total Protein Albumin TSH Urine Color Julee Urine Clarity Sl cldy Urine pH 6.0 Ur Specific [place] 1.025 Urine Protein 2+ H Urine Glucose (UA) Neg Urine Ketones Neg Urine Occult Blood 1+ H Urine Nitrite Neg Urine Bilirubin Neg Urine Urobilinogen <2.0 Ur Leukocyte Esterase 2+ H Urine RBC 2-5 Urine WBC 20-30 H Ur Epithelial Cells 3+ Urine Bacteria Few Hyaline Casts 2-5 H Urine Mucus Sm amt 05/17/16 05/17/16 05/18/16 20:09 22:45 03:35 WBC RBC Hgb Hct MCV MCH MCHC RDW Plt Count MPV Neut % (Auto) Lymph % (Auto) [place] % (Auto) Eos % (Auto) Baso % (Auto) Absolute Neuts (auto) Absolute Lymphs (auto) Seg Neuts % (Manual) Band Neutrophils % Lymphocytes % (Manual) Monocytes % (Manual) Absolute Neutrophils Absolute Lymphocytes Vacuolated Neuts Toxic Granulation Platelet Estimate RBC Morphology PT INR APTT Puncture Site pH pCO2 pO2 HCO3 Total CO2 Base Excess FiO2 % Specimen Drawn By Sodium 135 L Potassium 2.9 L Chloride 103 Carbon Dioxide 20 L Anion Gap 15 BUN 45 H Creatinine 1.70 H Estimated GFR (MDRD) 31 L Glucose 119 H Calculated Osmolality 273 Calcium 7.1 L Corrected Calcium Total Bilirubin AST ALT Alkaline Phosphatase Troponin I < 0.01 < 0.01 Ruq-N-Lcwmmivomvi Pept Total Protein Albumin TSH Urine Color Urine Clarity Urine pH Ur Specific [place] Urine Protein Urine Glucose (UA) Urine Ketones Urine Occult Blood Urine Nitrite Urine Bilirubin Urine Urobilinogen Ur Leukocyte Esterase Urine RBC Urine WBC Ur Epithelial Cells Urine Bacteria Hyaline Casts Urine Mucus 05/18/16 05/18/16 03:35 04:05 WBC 8.7 RBC 3.52 L Hgb 9.9 L D Hct 29.5 L MCV 84 MCH 28.2 MCHC 33.7 RDW 14.8 H Plt Count 151 MPV 9.4 Neut % (Auto) Cancelled Lymph % (Auto) Cancelled [place] % (Auto) Cancelled Eos % (Auto) Cancelled Baso % (Auto) Cancelled Absolute Neuts (auto) Cancelled Absolute Lymphs (auto) Cancelled Seg Neuts % (Manual) 71 Band Neutrophils % 18 H Lymphocytes % (Manual) 7 L Monocytes % (Manual) 4 Absolute Neutrophils 7.74 Absolute Lymphocytes 0.61 L Vacuolated Neuts Toxic Granulation 1+ Platelet Estimate Norm RBC Morphology Norm PT INR APTT Puncture Site Right radial pH 7.360 pCO2 33.0 L pO2 89.0 HCO3 18.6 L Total CO2 19.6 L Base Excess -5.9 L FiO2 % .45 vm Specimen Drawn By Barkrystyna Sodium Potassium Chloride Carbon Dioxide Anion Gap BUN Creatinine Estimated GFR (MDRD) Glucose Calculated Osmolality Calcium Corrected Calcium Total Bilirubin AST ALT Alkaline Phosphatase Troponin I Doc-T-Ndqajycgfhn Pept Total Protein Albumin TSH Urine Color Urine Clarity Urine pH Ur Specific [place] Urine Protein Urine Glucose (UA) Urine Ketones Urine Occult Blood Urine Nitrite Urine Bilirubin Urine Urobilinogen Ur Leukocyte Esterase Urine RBC Urine WBC Ur Epithelial Cells Urine Bacteria Hyaline Casts Urine Mucus - Assessment (1) Acute respiratory failure Acute J96.00 - ACUTE RESPIRATORY FAILURE, UNSP W HYPOXIA OR HYPERCAPNIA Qualifiers: Respiratory failure complication: hypoxia Qualified Code(s): J96.01 - Acute respiratory failure with hypoxia Comment/Plan: Severe. Significant distress on Venti mask. Chest x-ray with bilateral pneumonia. Continue IV antibiotics nebulizer treatments and pulmonary toilet. (2) Acute renal failure Acute N17.9 - ACUTE KIDNEY FAILURE, UNSPECIFIED Qualifiers: Acute renal failure type: with acute tubular necrosis Qualified Code(s): N17.0 - Acute kidney failure with tubular necrosis Comment/Plan: Slightly better today. Continue IV fluids. Renal ultrasound is normal. (3) Sepsis Acute A41.9 - SEPSIS, UNSPECIFIED ORGANISM Qualifiers: Sepsis type: sepsis due to unspecified organism Qualified Code(s): A41.9 - Sepsis, unspecified organism Comment/Plan: Continue IV antibiotics, IV fluids and supportive care. She remains acutely and critically ill. (4) Community acquired bacterial pneumonia Acute J15.9 - UNSPECIFIED BACTERIAL PNEUMONIA Comment/Plan: Treating as aspiration pneumonia given history of stroke. Continue Zosyn and azithromycin. Remains acutely ill. (5) Cerebral arteriosclerosis with history of previous stroke Acute I67.2 - CEREBRAL ATHEROSCLEROSIS; Z86.73 - PRSNL HX OF TIA (TIA), AND CEREB INFRC W/O RESID DEFICITS Comment/Plan: Stroke noted on CT of brain and suspect dysphagia may have led to her pneumonia. Case Care Discussed with: Patient, Nursing Staff, Physical Therapy, Resource Management, Respiratory Therapy, Pipe [employer] Total Time: 45 minutes Critical Care: Yes
[2016-05-18] MEDS ORDERED: CEFTRIAXONE 1 GM in D5W 100 ML IV SCH (18:00)
[2016-05-18] MEDS: ENOXAPARIN 40 MG/0.4 ML PFS SQ SCH (18:24)
[2016-05-18] MEDS: NS/KCl 20 mEq 1,000 ML IV SCH (18:41)
[2016-05-18] MEDS: MONTELUKAST SODIUM 10 MG TAB PO SCH (19:06)
[2016-05-18] MEDS: AZITHROMYCIN 500 MG in D5W 250 ML IV SCH (20:04)
[2016-05-18] MEDS ORDERED: ACETAMINOPHEN 650 MG SUPP PR ONE (23:55)
[2016-05-19] MEDS ORDERED: ACETAMINOPHEN 650 MG SUPP PR ONE (00:01)
[2016-05-19] MEDS: Albuterol/Ipratropium Neb 3 ML NEB NEB SCH ×4 (01:26→19:52)
[2016-05-19] MEDS: NS/KCl 20 mEq 1,000 ML IV SCH ×4 (03:10→17:45)
[2016-05-19] MEDS: PIPERACILLIN AND TAZOBACTAM 4.5 GM in D5W 100 ML IV SCH ×4 (04:16→23:10)
[2016-05-19] MEDS: PANTOPRAZOLE 40 MG TAB PO SCH (04:17)
[2016-05-19] MEDS: BENZONATATE 100 MG PERLES PO SCH ×3 (04:17→20:16)
[2016-05-19 04:28] LABS: BLOOD UREA NITROGEN 27 MG/DL (7-17); CALCIUM 7.8 MG/DL (8.4-10.2); CALCULATED OSMOLALITY 273 MOs/Kg (270-290); CHLORIDE 109 mEq/L (98-107); GLUCOSE 92 MG/DL (70-99); SODIUM LEVEL 139 mEq/L (137-146)
[2016-05-19 05:22] LABS: SEG NEUTROPHIL 85 % (45-76)
[2016-05-19 05:23] LABS: TOTAL CELL COUNT 100
[2016-05-19 06:01] LABS: ALLEN'S TEST PASS; BEb -4.6 (+/- 2); TCO2 23.5 MMOL/L (23-27)
[2016-05-19 06:03] LABS: ABG Draw Site Right Radial
[2016-05-19] MEDS: ALBUTEROL 0.083% 3 ML NEB NEB PRN (07:51)
[2016-05-19] MEDS: SERTRALINE HCL 50 MG TAB PO SCH (11:54)
[2016-05-19] MEDS: ATENOLOL 50 MG TAB PO SCH (11:54)
[2016-05-19] MEDS: PROBIOTIC BLEND TAB PO SCH ×2 (11:54→17:45)
[2016-05-19] MEDS: CETIRIZINE HCL 10 MG TAB PO SCH (11:54)
[2016-05-19] MEDS: FLUTICASONE PROPIONATE 16 GM BOT NAS SCH (11:54)
--- NOTE | 2016-05-19 15:17 | GENMEDPROG ---
Chief Complaint: Sleepy but easily arousable. More fatigued appearing today. Still significant cough and congestion. Notes Reviewed: Yes Events from last night noted and discussed with Clinical Staff Current Medication List: Reviewed Currently: Reports: Cough, Wheezing, MCHUGH, SOB. Denies: Nausea and Vomiting, Abdominal Pain, Chest Pain DVT Prophylaxis: Yes - Physical Examination Vital Signs and I&O: Last Vital Signs Temp 98.9 F 05/19/16 12:00 Pulse 93 05/19/16 12:00 Resp 22 05/19/16 12:00 BP 114/76 05/19/16 12:00 Pulse Ox 98 05/19/16 12:00 Oxygen Pulse Oxygen Saturation 98 O2 Device Venturi Mask Oxygen Flow Rate 10 Fraction of Inspired Oxygen ( 45 FIO2) Intake & Output 05/16/16 05/17/16 05/18/16 05/19/16 23:59 23:59 23:59 23:59 Intake Total 2100 3204 1065 Output Total 1900 1400 Balance 2100 1304 -335 Patient's weight 81.012 kg 81.601 kg 82.1 kg General: Oriented x3, Cooperative, Moderate distress, Weakness, Fatigue. negative: Well appearing (Acutely ill-appearing) HEENT: Normal, PERRLA, EOMI, Anicteric Sclera Neck: Non-tender, Full range of motion, Normal Trachea alignment, Normal inspection. negative: JVD Lymphatics: Normal (No cervical lymphadenopathy. No supraclavicular lymphadenopathy.). negative: Adenopathy Respiratory: Diminished, Rhonchi. negative: Rales, Wheezes (Occasional expiratory wheeze) Cardiovascular: Regular rate and rhythm, No Gallops,Rubs/Murmurs GI: Normal bowel sounds, Soft, Non tender, No hepatospenomegaly, No masses Extremities/Musculoskeletal: Normal pulses. negative: Tenderness, Swelling, Edema Skin: Warm,Dry and Intact, No rashes, No breakdown, No significant lesion Neurological: Normal speech, Strength at 5/5 X4 ext, Normal tone, Cranial nerves 3-12 NL Psych/Mental Status: Appropriate, Cooperative, Anxious Lab/DI/Studies Reviewed: Laboratory Results - last 24 hr 05/19/16 05/19/16 05/19/16 03:20 03:20 05:57 WBC 12.2 H RBC 3.36 L Hgb 9.4 L Hct 28.2 L MCV 84 MCH 27.8 MCHC 33.2 RDW 15.0 H Plt Count 164 MPV 9.0 Neut % (Auto) Cancelled Lymph % (Auto) Cancelled [place] % (Auto) Cancelled Eos % (Auto) Cancelled Baso % (Auto) Cancelled Absolute Neuts (auto) Cancelled Absolute Lymphs (auto) Cancelled Seg Neuts % (Manual) 85 H Band Neutrophils % 1 Lymphocytes % (Manual) 7 L Monocytes % (Manual) 7 Absolute Neutrophils 10.49 H Absolute Lymphocytes 0.85 Nucl RBC Rel Cnt (Man) 1 Vacuolated Neuts 1+ Toxic Granulation 1+ Platelet Estimate Norm RBC Morphology Norm Puncture Site Right radial pH 7.290 L pCO2 46.0 H pO2 89.0 HCO3 22.1 Total CO2 23.5 Base Excess -4.6 L FiO2 % 45%vm Specimen Drawn By Whitr Sodium 139 Potassium 3.6 Chloride 109 H Carbon Dioxide 21 L Anion Gap 13 BUN 27 H Creatinine 0.90 Estimated GFR (MDRD) > 60 Glucose 92 POC Capillary Glucose Calculated Osmolality 273 Calcium 7.8 L 05/19/16 08:01 WBC RBC Hgb Hct MCV MCH MCHC RDW Plt Count MPV Neut % (Auto) Lymph % (Auto) [place] % (Auto) Eos % (Auto) Baso % (Auto) Absolute Neuts (auto) Absolute Lymphs (auto) Seg Neuts % (Manual) Band Neutrophils % Lymphocytes % (Manual) Monocytes % (Manual) Absolute Neutrophils Absolute Lymphocytes Nucl RBC Rel Cnt (Man) Vacuolated Neuts Toxic Granulation Platelet Estimate RBC Morphology Puncture Site pH pCO2 pO2 HCO3 Total CO2 Base Excess FiO2 % Specimen Drawn By Sodium Potassium Chloride Carbon Dioxide Anion Gap BUN Creatinine Estimated GFR (MDRD) Glucose POC Capillary Glucose 85 Calculated Osmolality Calcium - Assessment (1) Acute respiratory failure Acute J96.00 - ACUTE RESPIRATORY FAILURE, UNSP W HYPOXIA OR HYPERCAPNIA Qualifiers: Respiratory failure complication: hypoxia Qualified Code(s): J96.01 - Acute respiratory failure with hypoxia Comment/Plan: Less distress today but still acutely ill. Appears more fatigued and lethargic. Oxygenation has improved some but continues to require a Venti mask. Continue IV antibiotics and pulmonary toilet. Activity as tolerated (2) Acute renal failure Acute N17.9 - ACUTE KIDNEY FAILURE, UNSPECIFIED Qualifiers: Acute renal failure type: with acute tubular necrosis Qualified Code(s): N17.0 - Acute kidney failure with tubular necrosis Comment/Plan: Creatinine normal. Renal ultrasound negative. Can discontinue IV fluids (3) Sepsis Acute A41.9 - SEPSIS, UNSPECIFIED ORGANISM Qualifiers: Sepsis type: sepsis due to unspecified organism Qualified Code(s): A41.9 - Sepsis, unspecified organism Comment/Plan: Some better. Still with fever at times. Continue IV antibiotics and pulmonary toilet (4) Community acquired bacterial pneumonia Acute J15.9 - UNSPECIFIED BACTERIAL PNEUMONIA Comment/Plan: Treating as aspiration pneumonia given history of stroke. Continue Zosyn and azithromycin. Remains acutely ill. (5) Cerebral arteriosclerosis with history of previous stroke Acute I67.2 - CEREBRAL ATHEROSCLEROSIS; Z86.73 - PRSNL HX OF TIA (TIA), AND CEREB INFRC W/O RESID DEFICITS Comment/Plan: Stroke noted on CT of brain and suspect dysphagia may have led to her pneumonia. Case Care Discussed with: Patient, Family (Discussed with ), Nursing Staff, Physical Therapy, Resource Management, Respiratory Therapy, Manager Surgery
[2016-05-19] MEDS: ENOXAPARIN 40 MG/0.4 ML PFS SQ SCH (17:46)
[2016-05-19] MEDS: AZITHROMYCIN 500 MG in D5W 250 ML IV SCH (20:13)
[2016-05-19] MEDS: MONTELUKAST SODIUM 10 MG TAB PO SCH (20:16)
[2016-05-20] MEDS: Albuterol/Ipratropium Neb 3 ML NEB NEB SCH ×4 (01:37→19:16)
[2016-05-20 04:03] LABS: MPV 8.6 fL (7.4-10.4)
[2016-05-20 04:06] LABS: BLOOD UREA NITROGEN 12 MG/DL (7-17); CALCULATED OSMOLALITY 266 MOs/Kg (270-290); CHLORIDE 105 mEq/L (98-107); GLUCOSE 131 MG/DL (70-99); SODIUM LEVEL 137 mEq/L (137-146)
[2016-05-20 04:25] LABS: SEG NEUTROPHIL 81 % (45-76)
[2016-05-20] MEDS: BENZONATATE 100 MG PERLES PO SCH ×3 (05:20→19:46)
[2016-05-20] MEDS: PANTOPRAZOLE 40 MG TAB PO SCH (05:20)
[2016-05-20] MEDS: PIPERACILLIN AND TAZOBACTAM 4.5 GM in D5W 100 ML IV SCH ×3 (05:22→18:11)
[2016-05-20 05:24] LABS: ALLEN'S TEST PASS; TCO2 28.7 MMOL/L (23-27)
[2016-05-20 05:30] LABS: ABG Draw Site Left Radial
[2016-05-20] MEDS ORDERED: DILTIAZEM 25 MG/5 ML VIAL IV ONE ×2 (06:49→07:00)
[2016-05-20] MEDS ORDERED: METOPROLOL 5 MG/5 ML SDV IV ONE (07:17)
[2016-05-20] MEDS: ATENOLOL 50 MG TAB PO SCH (07:22)
[2016-05-20] MEDS: Diltiazem HCl 100 MG in D5W 100 ML IV SCH ×3 (07:35→19:43)
--- NOTE | 2016-05-20 07:57 | DIRPT ---
CLINICAL DATA: Follow-up right upper lobe pneumonia EXAM: PORTABLE CHEST 1 VIEW COMPARISON: CT scan of the chest and chest x-ray dated May 17, 2016 FINDINGS: There is persistent dense consolidation of much of the right upper lobe. Air bronchograms are visible. Mildly increased density has developed in the mid and lower right lung. The left lung is well-expanded. There is hazy density in the left pulmonary apex which has developed since the previous study. The heart is top-normal in size. The pulmonary vascularity is not engorged. IMPRESSION: Persistent dense infiltrate in the right upper lobe. Increasing density in the right mid and lower lung and in the left pulmonary apex. The findings are worrisome for progressive pneumonia. Electronically Signed By: Sriram Bobby M.D. On: 05/20/2016 07:54
--- NOTE | 2016-05-20 08:16 | GENMEDPROG ---
Chief Complaint: Called to see patient due to rapid AFib. Patient continues to be labored and feeling poorly. Chest x-ray shows extensive right lung pneumonia. Notes Reviewed: Yes Events from last night noted and discussed with Clinical Staff Current Medication List: Reviewed Currently: Reports: Cough, Wheezing, MCHUGH, SOB. Denies: Nausea and Vomiting, Abdominal Pain, Chest Pain DVT Prophylaxis: Yes - Physical Examination Vital Signs and I&O: Last Vital Signs Temp 98.6 F 05/20/16 07:31 Pulse 124 H 05/20/16 08:07 Resp 24 05/20/16 07:45 BP 115/75 05/20/16 08:07 Pulse Ox 92 05/20/16 07:45 Oxygen Pulse Oxygen Saturation 92 O2 Device BiPAP Oxygen Flow Rate 10 Fraction of Inspired Oxygen ( 45 FIO2) Intake & Output 05/17/16 05/18/16 05/19/16 05/20/16 23:59 23:59 23:59 23:59 Intake Total 2100 3204 2616 611 Output Total 1900 1900 600 Balance 2100 1304 716 11 Patient's weight 81.012 kg 81.601 kg 82.1 kg 83.28 kg General: Oriented x3, Cooperative, Severe distress, Weakness, Fatigue. negative : Well appearing (Acutely ill-appearing) HEENT: Normal, PERRLA, EOMI, Anicteric Sclera Neck: Non-tender, Full range of motion, Normal Trachea alignment, Normal inspection. negative: JVD Lymphatics: Normal (No cervical lymphadenopathy. No supraclavicular lymphadenopathy.). negative: Adenopathy Respiratory: Diminished, Rhonchi. negative: Rales, Wheezes (Occasional expiratory wheeze) Cardiovascular: Regular rate and rhythm, No Gallops,Rubs/Murmurs GI: Normal bowel sounds, Soft, Non tender, No hepatospenomegaly, No masses Extremities/Musculoskeletal: Normal pulses. negative: Tenderness, Swelling, Edema Skin: Warm,Dry and Intact, No rashes, No breakdown, No significant lesion Neurological: Normal speech, Strength at 5/5 X4 ext, Normal tone, Cranial nerves 3-12 NL Psych/Mental Status: Appropriate, Cooperative, Anxious Lab/DI/Studies Reviewed: Laboratory Results - last 24 hr 05/19/16 05/20/16 05/20/16 08:01 03:35 03:35 WBC 11.5 H RBC 3.20 L Hgb 8.9 L Hct 26.8 L MCV 84 MCH 27.7 MCHC 33.1 RDW 15.0 H Plt Count 158 MPV 8.6 Neut % (Auto) Cancelled Lymph % (Auto) Cancelled [place] % (Auto) Cancelled Eos % (Auto) Cancelled Baso % (Auto) Cancelled Absolute Neuts (auto) Cancelled Absolute Lymphs (auto) Cancelled Seg Neuts % (Manual) 81 H Band Neutrophils % 0 Lymphocytes % (Manual) 13 L Monocytes % (Manual) 6 Absolute Neutrophils 9.32 H Absolute Lymphocytes 1.50 Vacuolated Neuts Few Atypical Lymphocytes Few Toxic Granulation 2+ Platelet Estimate Norm RBC Morphology 1+ hypo Puncture Site pH pCO2 pO2 HCO3 Total CO2 Base Excess FiO2 % Specimen Drawn By Sodium 137 Potassium 3.1 L Chloride 105 Carbon Dioxide 26 Anion Gap 9 BUN 12 Creatinine 0.60 Estimated GFR (MDRD) > 60 Glucose 131 H POC Capillary Glucose 85 Calculated Osmolality 266 L Calcium 8.0 L 05/20/16 05:25 WBC RBC Hgb Hct MCV MCH MCHC RDW Plt Count MPV Neut % (Auto) Lymph % (Auto) [place] % (Auto) Eos % (Auto) Baso % (Auto) Absolute Neuts (auto) Absolute Lymphs (auto) Seg Neuts % (Manual) Band Neutrophils % Lymphocytes % (Manual) Monocytes % (Manual) Absolute Neutrophils Absolute Lymphocytes Vacuolated Neuts Atypical Lymphocytes Toxic Granulation Platelet Estimate RBC Morphology Puncture Site Left radial pH 7.400 pCO2 44.0 pO2 57.0 L HCO3 27.3 H Total CO2 28.7 H Base Excess 2.0 FiO2 % 45% vm Specimen Drawn By Olu Sodium Potassium Chloride Carbon Dioxide Anion Gap BUN Creatinine Estimated GFR (MDRD) Glucose POC Capillary Glucose Calculated Osmolality Calcium - Assessment (1) Acute respiratory failure Acute J96.00 - ACUTE RESPIRATORY FAILURE, UNSP W HYPOXIA OR HYPERCAPNIA Qualifiers: Respiratory failure complication: hypoxia Qualified Code(s): J96.01 - Acute respiratory failure with hypoxia Comment/Plan: Remains acutely and critically ill. Some worsening hypoxia and now with rapid AFib. No prior history of AFib. Will go ahead and place on BiPAP given increased work of breathing. Will have Dr. Treviño see in consultation as well. Continue broad antibiotics, nebulizer treatments steroids and pulmonary toilet. (2) Acute renal failure Acute N17.9 - ACUTE KIDNEY FAILURE, UNSPECIFIED Qualifiers: Acute renal failure type: with acute tubular necrosis Qualified Code(s): N17.0 - Acute kidney failure with tubular necrosis Comment/Plan: Resolved. IV fluids discontinued. (3) Sepsis Acute A41.9 - SEPSIS, UNSPECIFIED ORGANISM Qualifiers: Sepsis type: sepsis due to unspecified organism Qualified Code(s): A41.9 - Sepsis, unspecified organism Comment/Plan: Fever better however continues to have severe respiratory distress due to pneumonia. (4) Community acquired bacterial pneumonia Acute J15.9 - UNSPECIFIED BACTERIAL PNEUMONIA Comment/Plan: Treating as aspiration pneumonia given history of stroke. Continue Zosyn and azithromycin. Remains acutely ill. (5) Cerebral arteriosclerosis with history of previous stroke Acute I67.2 - CEREBRAL ATHEROSCLEROSIS; Z86.73 - PRSNL HX OF TIA (TIA), AND CEREB INFRC W/O RESID DEFICITS Comment/Plan: Stroke noted on CT of brain and suspect dysphagia may have led to her pneumonia. Case Care Discussed with: Patient, Family, Nursing Staff, Respiratory Therapy ( Placing on BiPAP) Total Time: 1 hour Critical Care: Yes
--- NOTE | 2016-05-20 09:42 | CAPUEKG ---
[place], [place] Test Date: 2016-05-20 Pat Name: LUCRETIA SUNSHINE Department: Room: 432 Gender: Female Court Orderly: : Requested By: Order Number: Reading MD: Drake Fry MD Measurements Intervals Quail Rate: 168 P: MI: QRS: 11 QRSD: 88 T: -58 QT: 284 QTc: 474 Interpretive Statements Atrial fibrillation with rapid ventricular response Marked ST abnormality, possible inferior subendocardial injury Abnormal ECG Electronically Signed On 05-20-16 09:42:03 EST by Drake Fry MD [email or web address] [id number]
[2016-05-20] MEDS: SERTRALINE HCL 50 MG TAB PO SCH (09:49)
[2016-05-20] MEDS: FLUTICASONE PROPIONATE 16 GM BOT NAS SCH (09:49)
[2016-05-20] MEDS: CETIRIZINE HCL 10 MG TAB PO SCH (09:49)
[2016-05-20] MEDS: Levofloxacin 750 mg/150 ml D5W 750 MG/150 ML RTU IV SCH (10:26)
[2016-05-20] MEDS: PROBIOTIC BLEND TAB PO SCH ×2 (11:22→16:46)
[2016-05-20] MEDS: NS/KCl 20 mEq 1,000 ML IV SCH ×2 (11:23→19:42)
[2016-05-20 12:07] LABS: ABG Draw Site Right Radial; ABG Draw Tech FS; ALLEN'S TEST PASS; BEb 4.4 (+/- 2); TCO2 30.5 MMOL/L (23-27)
[2016-05-20] MEDS: ENOXAPARIN 40 MG/0.4 ML PFS SQ SCH (18:11)
[2016-05-20 18:12] LABS: ALLEN'S TEST PASS; BEb 4.7 (+/- 2); TCO2 30.5 MMOL/L (23-27)
[2016-05-20 18:13] LABS: ABG Draw Site RRA
[2016-05-21] MEDS: MONTELUKAST SODIUM 10 MG TAB PO SCH ×2 (00:07→20:36)
[2016-05-21] MEDS: PIPERACILLIN AND TAZOBACTAM 4.5 GM in D5W 100 ML IV SCH ×4 (00:09→18:16)
[2016-05-21] MEDS: Albuterol/Ipratropium Neb 3 ML NEB NEB SCH ×4 (01:17→22:01)
--- NOTE | 2016-05-21 02:38 | HIMCONS ---
DATE OF CONSULT: REQUESTING PHYSICIAN: Dr. Boucher. REASON FOR CONSULTATION: Worsening pneumonia. HISTORY OF PRESENT ILLNESS: This patient is a 56-year-old white lady, who has past medical history significant for possible asthma/COPD and has been a smoker, quit a couple of years ago. Apparently, the patient was brought into the emergency room by the family with a 4-day history of sore throat, coughing which is worsening, fevers of 2 nights with hemoptysis the night before admission. The patient has had this cough and shortness of breath, has been going on for several weeks before this. She was also having right-sided chest pain, which was pleuritic in nature. Last time, she had pneumonia was in 2005 and also had breast cancer treated in 1998 with IV chemotherapy and has been cancer free since then. She had a pulmonary embolus back in 1998 according to the history. She might have had a stroke with some left facial discomfort in 2013 and was found to have a left basal ganglia stroke on workup of her headache. Her Chest x-ray showed right upper lobe dense infiltrate and I was called to see the patient as the patient's x-ray got worse today. PAST MEDICAL HISTORY: Significant for COPD, hypertension, gastroesophageal reflux disease, history of right breast cancer, history of fibromyalgia like symptoms. History of stroke, depression. PAST SURGICAL HISTORY: History of appendicectomy, hysterectomy, partial hysterectomy, a , right mastectomy, Port-A-Cath with thrombosis. ALLERGIES: NO KNOWN DRUG ALLERGIES. MEDICATIONS: In the chart were noted. FAMILY HISTORY: Significant for hypertension. SOCIAL HISTORY: The patient has been a smoker, quit 2 years ago. No history of alcohol or drug abuse. REVIEW OF SYSTEMS: Review of systems is negative except for as mentioned in the history of present illness. PHYSICAL EXAMINATION: VITAL SIGNS: Temperature is 98.6 degrees Fahrenheit, pulse is 78, respiratory rate 20, blood pressure 128/69, pulse ox is 97% on 45% BiPAP. CHEST: Decreased breath sounds on the right side with rales. No wheezing. HEART: S1, S2. Regular without any murmur. EXTREMITIES: No clubbing, cyanosis, or edema. ABDOMEN: Soft and nontender. Bowel sounds present. Hepatosplenomegaly is absent. NEURO: Grossly nonfocal. The patient moving all extremities. LABORATORY DATA: White count is 11.5, hemoglobin is 8.9, hematocrit is 26.8, platelets are 158. Blood gas done today, pH was 7.44, pCO2 of 43, PO2 was 124 over 45% oxygen 10/5 BiPAP. Sodium 137, potassium 3.1, chloride 105, CO2 is 26, BUN is 12, creatinine 0.6, and glucose is 131. IMAGING REPORTS: CAT scan of the chest was seen personally. The patient seems to have dense right upper lobe infiltrate with significant air bronchograms, minimal pulmonary fibrosis seen mostly in the right lower lobe may be related to questionable radiation injury. IMPRESSION: 1. Acute respiratory failure. 2. Acute atrial fibrillation. 3. Hypoxic, respiratory failure. 4. Right upper lobe dense infiltrate. 5. Multiple other medical issues. PLAN: The patient's blood and urine cultures have so far been negative. She has been on BiPAP placed earlier today because of her atrial fibrillation with rapid ventricular response. She has been on Lovenox 40 milligrams subcu daily and has been on Levaquin and Zosyn as well, along with Singulair and nebulizers. I would go ahead and check MRSA PCR and if it is negative, would not start her on vancomycin. I think patient is critically ill and she is in fact getting worse and I looked up the chest x-ray, which shows worsening of the right side with the pneumonia now developing in the right lower lobe versus effusions, and therefore, the patient needs to be on BiPAP and will be transferred to ICU because she remains critically ill. I would continue the current supportive care. Get a chest x-ray in the morning with a blood gas, check IgG, IgA, and IgM on this patient. The patient would probably need a bronchoscopy if she does not show any signs of improvement by tomorrow. I would keep the patient in ICU as she is in danger of getting worse, getting intubated, I had a prolonged discussion with the patient's family regarding this issue. We will repeat a blood gas towards the evening in this patient as well and check the results. Thank you very much for the consultation. I will follow the patient with you. Time spent approximately 90 minutes. [id number]
[2016-05-21 04:35] LABS: ABG Draw Site Right Radial; ALLEN'S TEST PASS; BEb 3.9 (+/- 2); TCO2 29.8 MMOL/L (23-27)
[2016-05-21] MEDS: Diltiazem HCl 100 MG in D5W 100 ML IV SCH ×2 (04:50→14:31)
[2016-05-21] MEDS: BENZONATATE 100 MG PERLES PO SCH ×3 (05:12→20:36)
[2016-05-21] MEDS: PANTOPRAZOLE 40 MG TAB PO SCH (05:13)
[2016-05-21 06:08] LABS: MPV 8.6 fL (7.4-10.4)
[2016-05-21 06:29] LABS: BLOOD UREA NITROGEN 10 MG/DL (7-17); CALCULATED OSMOLALITY 260 MOs/Kg (270-290); CHLORIDE 100 mEq/L (98-107); GLUCOSE 121 MG/DL (70-99); SODIUM LEVEL 135 mEq/L (137-146)
[2016-05-21] MEDS: NS/KCl 20 mEq 1,000 ML IV SCH (07:20)
[2016-05-21] MEDS: Levofloxacin 750 mg/150 ml D5W 750 MG/150 ML RTU IV SCH (07:41)
[2016-05-21] MEDS: SERTRALINE HCL 50 MG TAB PO SCH (07:41)
[2016-05-21] MEDS: ATENOLOL 50 MG TAB PO SCH (07:41)
[2016-05-21] MEDS: CETIRIZINE HCL 10 MG TAB PO SCH (07:41)
[2016-05-21] MEDS: FLUTICASONE PROPIONATE 16 GM BOT NAS SCH (07:42)
--- NOTE | 2016-05-21 07:42 | DIRPT ---
CLINICAL DATA: Respiratory failure. EXAM: PORTABLE CHEST 1 VIEW COMPARISON: 05/20/2016. CT 05/17/2016. FINDINGS: Persistent right upper lobe and right base infiltrate, particular prominent right upper lobe again noted. No interim change. Findings consist with pneumonia. Heart size stable. Small right pleural effusion cannot be excluded. No pneumothorax . IMPRESSION: Persistent dense right upper lobe infiltrate. Persistent right base infiltrate. Findings most consistent with pneumonia. Small right pleural effusion cannot be excluded. Electronically Signed By: Curtis Vickers On: 05/21/2016 07:39
[2016-05-21 08:17] LABS: SEG NEUTROPHIL 71 % (45-76)
--- NOTE | 2016-05-21 09:17 | GENMEDPROG ---
Chief Complaint: STRONGER LESS SOB WHEEZING Notes Reviewed: Yes Events from last night noted and discussed with Clinical Staff Current Medication List: Reviewed Currently: Reports: Cough, Wheezing, MCHUGH, SOB. Denies: Nausea and Vomiting, Abdominal Pain, Chest Pain DVT Prophylaxis: Yes - Physical Examination Vital Signs and I&O: Last Vital Signs Temp 99.9 F 05/21/16 07:00 Pulse 77 05/21/16 08:00 Resp 28 H 05/21/16 06:00 BP 120/62 05/21/16 08:00 Pulse Ox 98 05/21/16 08:52 Oxygen Pulse Oxygen Saturation 98 O2 Device Nasal Cannula Oxygen Flow Rate 2 Fraction of Inspired Oxygen ( 45 FIO2) Intake & Output 05/18/16 05/19/16 05/20/16 05/21/16 23:59 23:59 23:59 23:59 Intake Total 3204 2616 1503 969 Output Total 1900 1900 1400 1 Balance 1304 716 103 968 Patient's weight 81.601 kg 82.1 kg 83.28 kg 82.242 kg General: Oriented x3, Cooperative, Severe distress, Weakness, Fatigue. negative : Well appearing (Acutely ill-appearing) HEENT: Normal, PERRLA, EOMI, Anicteric Sclera Neck: Non-tender, Full range of motion, Normal Trachea alignment, Normal inspection. negative: JVD Lymphatics: Normal (No cervical lymphadenopathy. No supraclavicular lymphadenopathy.). negative: Adenopathy Respiratory: Diminished, Rhonchi, Wheezes (expiratory wheeze). negative: Rales Cardiovascular: Regular rate and rhythm, No Gallops,Rubs/Murmurs GI: Normal bowel sounds, Soft, Non tender, No hepatospenomegaly, No masses Extremities/Musculoskeletal: Normal pulses. negative: Tenderness, Swelling, Edema Skin: Warm,Dry and Intact, No rashes, No breakdown, No significant lesion Neurological: Normal speech, Strength at 5/5 X4 ext, Normal tone, Cranial nerves 3-12 NL Psych/Mental Status: Appropriate, Cooperative, Anxious Lab/DI/Studies Reviewed: 05/21/16 05:45 05/21/16 05:45 Laboratory Results - last 24 hr 05/20/16 05/20/16 05/21/16 12:00 18:09 04:30 WBC RBC Hgb Hct MCV MCH MCHC RDW Plt Count MPV Neut % (Auto) Lymph % (Auto) [place] % (Auto) Eos % (Auto) Baso % (Auto) Absolute Neuts (auto) Absolute Lymphs (auto) Seg Neuts % (Manual) Band Neutrophils % Lymphocytes % (Manual) Monocytes % (Manual) Absolute Neutrophils Absolute Lymphocytes Toxic Granulation Platelet Estimate RBC Morphology Puncture Site Right radial Rra Right radial pH 7.440 7.450 7.440 pCO2 43.0 42.0 42.0 pO2 124.0 H 100.0 110.0 H HCO3 29.2 H 29.2 H 28.5 H Total CO2 30.5 H 30.5 H 29.8 H Base Excess 4.4 H 4.7 H 3.9 H FiO2 % 45% 45 45 Mode BiPAP 02/11 02/11 r10 02/11 Specimen Drawn By Sudha Mckeon Sodium Potassium Chloride Carbon Dioxide Anion Gap BUN Creatinine Estimated GFR (MDRD) Glucose Calculated Osmolality Calcium 05/21/16 05/21/16 05:45 05:45 WBC 10.2 RBC 3.28 L Hgb 9.3 L Hct 27.4 L MCV 84 MCH 28.2 MCHC 33.8 RDW 14.9 H Plt Count 198 MPV 8.6 Neut % (Auto) Cancelled Lymph % (Auto) Cancelled [place] % (Auto) Cancelled Eos % (Auto) Cancelled Baso % (Auto) Cancelled Absolute Neuts (auto) Cancelled Absolute Lymphs (auto) Cancelled Seg Neuts % (Manual) 71 Band Neutrophils % 6 H Lymphocytes % (Manual) 12 L Monocytes % (Manual) 11 H Absolute Neutrophils 7.85 Absolute Lymphocytes 1.22 Toxic Granulation 1+ Platelet Estimate Norm RBC Morphology Reviewed this admiss Puncture Site pH pCO2 pO2 HCO3 Total CO2 Base Excess FiO2 % Mode BiPAP Specimen Drawn By Sodium 135 L Potassium 3.0 L Chloride 100 Carbon Dioxide 27 Anion Gap 11 BUN 10 Creatinine 0.60 Estimated GFR (MDRD) > 60 Glucose 121 H Calculated Osmolality 260 L Calcium 8.0 L - Assessment (1) Sepsis Acute A41.9 - SEPSIS, UNSPECIFIED ORGANISM Qualifiers: Sepsis type: sepsis due to unspecified organism Qualified Code(s): A41.9 - Sepsis, unspecified organism Comment/Plan: Fever better however continues to have severe respiratory distress due to pneumonia. Patient on Zosyn Levaquin. (2) Community acquired bacterial pneumonia Acute J15.9 - UNSPECIFIED BACTERIAL PNEUMONIA Comment/Plan: Treating as aspiration pneumonia given history of stroke. Continue Zosyn and Levaquin. Remains acutely ill. (3) Dysphagia Acute R13.10 - DYSPHAGIA, UNSPECIFIED Qualifiers: Dysphagia type: oropharyngeal phase Qualified Code(s): R13.12 - Dysphagia, oropharyngeal phase Comment/Plan: Speech therapy consult is ordered. (4) Cerebral arteriosclerosis with history of previous stroke Acute I67.2 - CEREBRAL ATHEROSCLEROSIS; Z86.73 - PRSNL HX OF TIA (TIA), AND CEREB INFRC W/O RESID DEFICITS Comment/Plan: Stroke noted on CT of brain and suspect dysphagia may have led to her pneumonia. (5) Hypoxia Acute R09.02 - HYPOXEMIA Comment/Plan: Associated with her severe right upper lobe pneumonia. (6) Hypokalemia Acute E87.6 - HYPOKALEMIA Comment/Plan: po potassium supp. (7) Acute renal failure Resolved N17.9 - ACUTE KIDNEY FAILURE, UNSPECIFIED Qualifiers: Acute renal failure type: with acute tubular necrosis Qualified Code(s): N17.0 - Acute kidney failure with tubular necrosis Comment/Plan: Resolved. IV fluids discontinued. Case Care Discussed with: Patient, Family, Nursing Staff, Resource Management Education/Counseling Given To: Patient, Family Member Education/Counseling Given Regarding: Diagnosis, Treatment Total Time: 38 MIN Critical Care: No Code: 55402 (12+)
[2016-05-21] MEDS ORDERED: Magnesium Sulfate 2 gm/D5W 2 GM/50 ML RTU IV SCH (10:00)
[2016-05-21] MEDS: PROBIOTIC BLEND TAB PO SCH ×2 (11:21→18:16)
[2016-05-21] MEDS: POTASSIUM CHLORIDE 20 MEQ TAB PO SCH ×4 (11:21→18:16)
[2016-05-21] MEDS: FUROSEMIDE 40 MG/4 ML VIAL IV SCH ×2 (11:22→18:15)
--- NOTE | 2016-05-21 14:11 | PCM.PULM ---
Chief Complaint: Acute respiratory failure Pneumonia Sepsis Acute renal failure Hypoxia Patient in Intensive care unit alert and responsive. On BIPAP PRN and oxygen. Family at bedside Current complaints: Dyspnea,dry cough, wheeze. No chest pain reported Notes and medication list reviewed:yes DVT/GI prophylaxis:yes - Physical Examination Vital Signs and I&O: Last Vital Signs Temp 100.3 F 05/21/16 11:00 Pulse 71 05/21/16 12:00 Resp 28 H 05/21/16 06:00 BP 127/68 05/21/16 12:00 Pulse Ox 95 05/21/16 12:00 Oxygen Pulse Oxygen Saturation 95 O2 Device Nasal Cannula Oxygen Flow Rate 2 Fraction of Inspired Oxygen ( 45 FIO2) Intake & Output 05/18/16 05/19/16 05/20/16 05/21/16 23:59 23:59 23:59 23:59 Intake Total 3204 2616 1503 969 Output Total 1900 1900 1400 1 Balance 1304 716 103 968 Patient's weight 81.601 kg 82.1 kg 83.28 kg 82.242 kg General: Alert, Oriented x3, Cooperative, Mild distress, Weakness, Fatigue Respiratory: Diminished, Rhonchi (Right upper lobe and right lower lobe), Tachypnea Cardiovascular: Regular rate, Regular rate and rhythm, Normal S1, No Gallops, Rubs/Murmurs, Normal S2, Good Pedal Pulses GI: Normal bowel sounds, Soft, Non tender, No hepatospenomegaly, No masses Extremities/Musculoskeletal: Normal pulses Skin: Warm,Dry and Intact, No rashes, No breakdown, No significant lesion Neurological: Normal speech, Cranial nerves 3-12 NL Psych/Mental Status: Appropriate, Cooperative, Anxious Result Diagrams: 05/21/16 05:45 05/21/16 05:45 Labs (last 24 hours): Laboratory Results - last 24 hr 05/20/16 05/21/16 05/21/16 18:09 04:30 05:45 WBC RBC Hgb Hct MCV MCH MCHC RDW Plt Count MPV Neut % (Auto) Lymph % (Auto) [place] % (Auto) Eos % (Auto) Baso % (Auto) Absolute Neuts (auto) Absolute Lymphs (auto) Seg Neuts % (Manual) Band Neutrophils % Lymphocytes % (Manual) Monocytes % (Manual) Absolute Neutrophils Absolute Lymphocytes Toxic Granulation Platelet Estimate RBC Morphology Puncture Site Rra Right radial pH 7.450 7.440 pCO2 42.0 42.0 pO2 100.0 110.0 H HCO3 29.2 H 28.5 H Total CO2 30.5 H 29.8 H Base Excess 4.7 H 3.9 H FiO2 % 45 45 Mode BiPAP 10/5 r10 02/11 Specimen Drawn By Carol Mckeon Sodium 135 L Potassium 3.0 L Chloride 100 Carbon Dioxide 27 Anion Gap 11 BUN 10 Creatinine 0.60 Estimated GFR (MDRD) > 60 Glucose 121 H Calculated Osmolality 260 L Calcium 8.0 L Magnesium Cdw-G-Pgokuohagvc Pept 05/21/16 05/21/16 05/21/16 05:45 05:45 05:45 WBC 10.2 RBC 3.28 L Hgb 9.3 L Hct 27.4 L MCV 84 MCH 28.2 MCHC 33.8 RDW 14.9 H Plt Count 198 MPV 8.6 Neut % (Auto) Cancelled Lymph % (Auto) Cancelled [place] % (Auto) Cancelled Eos % (Auto) Cancelled Baso % (Auto) Cancelled Absolute Neuts (auto) Cancelled Absolute Lymphs (auto) Cancelled Seg Neuts % (Manual) 71 Band Neutrophils % 6 H Lymphocytes % (Manual) 12 L Monocytes % (Manual) 11 H Absolute Neutrophils 7.85 Absolute Lymphocytes 1.22 Toxic Granulation 1+ Platelet Estimate Norm RBC Morphology Reviewed this admiss Puncture Site pH pCO2 pO2 HCO3 Total CO2 Base Excess FiO2 % Mode BiPAP Specimen Drawn By Sodium Potassium Chloride Carbon Dioxide Anion Gap BUN Creatinine Estimated GFR (MDRD) Glucose Calculated Osmolality Calcium Magnesium 1.90 Cancelled Thx-R-Nvhmbzcyoco Pept 3740 H Lab/DI/Studies Reviewed: EKG: NSR, NO ST or ST wave changes noted Microbiology: 05/20/16 13:56 Nares Nasal Screen MRSA (PCR)(LISS) - Final NEGATIVE for MRSA DNA Cxray: 1 view Chest x-ray was seen personally patient seems to have both right upper and right lower lobe dense infiltrates with small effusion Medications: Acetaminophen (Tylenol Suppository) 325 mg GA Q6H PRN; Protocol PRN Reason: Mild Pain or Fever above 100.4 Stop: 05/31/16 16:59 Last Admin: 05/18/16 20:00 Dose: 325 mg Acetaminophen (Tylenol Tablet) 325 mg PO Q6H PRN; Protocol PRN Reason: Mild Pain or Fever above 100.4 Stop: 05/31/16 16:59 Last Admin: 05/18/16 04:35 Dose: 325 mg Albuterol/Ipratropium (Duoneb) 3 ml NEB RTQ6 [facility] Stop: 05/31/16 16:59 Last Admin: 05/21/16 14:10 Dose: 3 ml Atenolol (Tenormin) 50 mg PO DAILY [facility] Stop: 06/01/16 08:59 Last Admin: 05/21/16 07:41 Dose: 50 mg Levofloxacin/Dextrose (Levaquin 750 Mg) 750 mg in 150 mls @ 100 mls/hr IV Q24H [facility] Stop: 05/27/16 16:59 Last Admin: 05/21/16 07:41 Dose: 100 mls/hr Temazepam (Restoril) 15 mg PO 2100,2200 PRN PRN Reason: Sleep or Insomnia Stop: 05/31/16 16:59 Albuterol (Proventil, Ventolin) 3 ml NEB Q2H PRN PRN Reason: Wheezing Stop: 05/31/16 16:59 Last Admin: 05/19/16 07:51 Dose: 3 ml Benzonatate (Tessalon) 200 mg PO Q8H [facility] Stop: 05/31/16 19:59 Last Admin: 05/21/16 11:21 Dose: 200 mg Cetirizine HCl (Zyrtec) 10 mg PO DAILY [facility] Stop: 06/01/16 08:59 Last Admin: 05/21/16 07:41 Dose: 10 mg Chlorphenir/Hydrocodone Polistirex (Tussionex) 5 ml PO BID PRN PRN Reason: Cough Stop: 05/31/16 16:59 Enoxaparin Sodium (Lovenox) 40 mg SQ DAILY@1800 [facility] Stop: 06/01/16 17:59 Last Admin: 05/20/16 18:11 Dose: 40 mg Fluticasone Propionate (Flonase Nasal [place]) 2 sprays TAHMINA DAILY [facility] Stop: 06/01/16 08:59 Last Admin: 05/21/16 07:42 Dose: 2 spr Furosemide (Lasix) 40 mg IV LASBID [facility] Stop: 05/23/16 09:59 Last Admin: 05/21/16 11:22 Dose: 40 mg Hydrochlorothiazide (Hydrochlorothiazide) 25 mg PO DAILY([place]) [facility] Stop: 06/05/16 06:59 Lact Acid/Bifidobact/Lact [place]/Streptoc Th (Jory Q) 1 tab PO BIDLS [facility] Stop: 05/31/16 18:59 Last Admin: 05/21/16 11:21 Dose: 1 tab Lorazepam (Ativan) 1 mg PO Q4H PRN PRN Reason: Anxiety/Agitation Stop: 06/01/16 16:59 Last Admin: 05/18/16 05:11 Dose: 1 mg Montelukast Sodium (Singulair) 10 mg PO QHS [facility] Stop: 06/01/16 20:59 Last Admin: 05/21/16 00:07 Dose: 10 mg Oxycodone HCl (Oxycodone Immediate Release (Oxyir)) 5 mg PO Q4H PRN PRN Reason: MODERATE TO SEVERE PAIN Stop: 05/31/16 16:59 Last Admin: 05/18/16 04:32 Dose: 5 mg Pantoprazole Sodium (Protonix) 40 mg PO 0600 [facility] Stop: 06/01/16 05:59 Last Admin: 05/21/16 05:13 Dose: 40 mg Piperacillin Sod/Tazobactam (Sod 4.5 gm/ Dextrose) 100 mls @ 200 mls/hr IV Q6H [facility] Stop: 05/25/16 17:59 Last Admin: 05/21/16 11:22 Dose: 200 mls/hr Potassium Chloride (Klor-Con M20) 40 meq PO Q2H [facility] Stop: 05/21/16 17:01 Last Admin: 05/21/16 15:36 Dose: 40 meq Sertraline HCl (Zoloft) 50 mg PO DAILY [facility] Stop: 06/01/16 08:59 Last Admin: 05/21/16 07:41 Dose: 50 mg - Assessment/Plan (1) Acute respiratory failure Acute J96.00 - ACUTE RESPIRATORY FAILURE, UNSP W HYPOXIA OR HYPERCAPNIA hypoxia J96.01 - Acute respiratory failure with hypoxia Comment/Plan: Would continue the current antibiotics on this patient keep the patient on BiPAP as needed currently patient is on Levaquin and Zosyn along with nebulizers would continue DVT and GI prophylaxis patient remains critically ill and would be kept in ICU for now would repeat a blood gas in the morning (2) Community acquired bacterial pneumonia Acute J15.9 - UNSPECIFIED BACTERIAL PNEUMONIA Comment/Plan: Continue the current antibiotic therapy on this patient patient does not need vancomycin since MRSA PCR has been negative (3) Hypoxia Acute R09.02 - HYPOXEMIA Comment/Plan: Continue oxygen and BiPAP as needed (4) Sepsis Acute A41.9 - SEPSIS, UNSPECIFIED ORGANISM sepsis due to unspecified organism A41.9 - Sepsis, unspecified organism Comment/Plan: Continue the current antibiotics including Levaquin and Zosyn I personally saw and evaluated the patient.: Yes Total Face to Face Time: 35 minutes Case Care Discussed with: Patient, Nursing Staff Education/Counseling Given To: Patient Education/Counseling Given Regarding: Diagnosis, Treatment, Prognosis, Follow Up , Disposition Plan
[2016-05-21] MEDS: ENOXAPARIN 40 MG/0.4 ML PFS SQ SCH (18:16)
[2016-05-22] MEDS: PIPERACILLIN AND TAZOBACTAM 4.5 GM in D5W 100 ML IV SCH ×4 (00:09→18:26)
[2016-05-22] MEDS: Albuterol/Ipratropium Neb 3 ML NEB NEB SCH ×4 (03:07→19:17)
[2016-05-22] MEDS ORDERED: METOPROLOL 5 MG/5 ML SDV IV ONE ×2 (03:32)
[2016-05-22] MEDS: BENZONATATE 100 MG PERLES PO SCH ×3 (03:57→21:08)
[2016-05-22 04:06] LABS: MPV 9.1 fL (7.4-10.4)
[2016-05-22 04:15] LABS: BLOOD UREA NITROGEN 13 MG/DL (7-17); CALCIUM 8.4 MG/DL (8.4-10.2); CALCULATED OSMOLALITY 259 MOs/Kg (270-290); CHLORIDE 97 mEq/L (98-107); GLUCOSE 123 MG/DL (70-99); SODIUM LEVEL 134 mEq/L (137-146)
[2016-05-22] MEDS ORDERED: Magnesium Sulfate 2 gm/D5W 2 GM/50 ML RTU IV ONE (04:22)
[2016-05-22 04:52] LABS: SEG NEUTROPHIL 79 % (45-76)
[2016-05-22 06:22] LABS: ALLEN'S TEST PASS; BEb 8.6 (+/- 2); TCO2 32.7 MMOL/L (23-27)
[2016-05-22 06:23] LABS: ABG Draw Site Left Brachial
[2016-05-22] MEDS: PANTOPRAZOLE 40 MG TAB PO SCH (06:24)
[2016-05-22] MEDS: HYDROCHLOROTHIAZIDE 25 MG TAB PO SCH (06:25)
--- NOTE | 2016-05-22 07:58 | PCM.PULM ---
Chief Complaint: Respiratory failure acute Pneumonia Hypoxia Sepsis Patient breathing is improving somewhat. She is on nasal cannula oxygen and uses BIPAP at night. She is having some sob and coughing up more phlegm up. Current medication list reviewed:yes Notes reviewed:yes - Physical Examination Vital Signs and I&O: Last Vital Signs Temp 99.1 F 05/22/16 04:59 Pulse 81 05/22/16 07:51 Resp 20 05/22/16 03:00 BP 127/78 05/22/16 03:56 Pulse Ox 93 05/22/16 03:25 Oxygen Pulse Oxygen Saturation 93 O2 Device Nasal Cannula Oxygen Flow Rate 4 Fraction of Inspired Oxygen ( 45 FIO2) Intake & Output 05/19/16 05/20/16 05/21/16 05/22/16 23:59 23:59 23:59 23:59 Intake Total 2616 1503 1636 Output Total 1900 1400 901 300 Balance 716 103 735 -300 Patient's weight 82.1 kg 83.28 kg 82.242 kg 77.247 kg General: Alert, Oriented x3, Cooperative, No acute distress, Fatigue Respiratory: Diminished, Rhonchi Cardiovascular: Regular rate, Regular rate and rhythm, Normal S1, No Gallops, Rubs/Murmurs, Normal S2 GI: Normal bowel sounds, Soft, Non tender, No hepatospenomegaly, No masses Extremities/Musculoskeletal: Normal pulses Skin: Warm,Dry and Intact, No rashes, No breakdown, No significant lesion Neurological: Normal speech, Strength at 5/5 X4 ext, Cranial nerves 3-12 NL Psych/Mental Status: Normal Affect Result Diagrams: 05/22/16 03:45 05/22/16 03:45 Labs (last 24 hours): Laboratory Results - last 24 hr 05/22/16 05/22/16 05/22/16 03:45 03:45 03:45 WBC 11.4 H RBC 3.54 L Hgb 9.8 L Hct 29.3 L MCV 83 MCH 27.8 MCHC 33.5 RDW 14.8 H Plt Count 247 MPV 9.1 Neut % (Auto) Cancelled Lymph % (Auto) Cancelled Lamb % (Auto) Cancelled Eos % (Auto) Cancelled Baso % (Auto) Cancelled Absolute Neuts (auto) Cancelled Absolute Lymphs (auto) Cancelled Seg Neuts % (Manual) 79 H Band Neutrophils % 2 Lymphocytes % (Manual) 12 L Monocytes % (Manual) 6 Eosinophils % (Manual) 1 Absolute Neutrophils 9.23 H Absolute Lymphocytes 1.37 Vacuolated Neuts Few Toxic Granulation 2+ Platelet Estimate Norm RBC Morphology 1+ aniso Puncture Site pH pCO2 pO2 HCO3 Total CO2 Base Excess FiO2 % Specimen Drawn By Sodium 134 L Potassium 3.8 D 4.0 Chloride 97 L Carbon Dioxide 28 Anion Gap 13 BUN 13 Creatinine 0.60 Estimated GFR (MDRD) > 60 Glucose 123 H Calculated Osmolality 259 L Calcium 8.4 Magnesium 1.80 1.80 Qmw-W-Uijzydpsncx Pept 05/22/16 06:15 WBC RBC Hgb Hct MCV MCH MCHC RDW Plt Count MPV Neut % (Auto) Lymph % (Auto) Lamb % (Auto) Eos % (Auto) Baso % (Auto) Absolute Neuts (auto) Absolute Lymphs (auto) Seg Neuts % (Manual) Band Neutrophils % Lymphocytes % (Manual) Monocytes % (Manual) Eosinophils % (Manual) Absolute Neutrophils Absolute Lymphocytes Vacuolated Neuts Toxic Granulation Platelet Estimate RBC Morphology Puncture Site Left brachial pH 7.540 H pCO2 37.0 pO2 72.0 L HCO3 31.6 H Total CO2 32.7 H Base Excess 8.6 H FiO2 % 2 Specimen Drawn By Rakma Sodium Potassium Chloride Carbon Dioxide Anion Gap BUN Creatinine Estimated GFR (MDRD) Glucose Calculated Osmolality Calcium Magnesium Dkb-I-Pbgqppgaaes Pept Lab/DI/Studies Reviewed: EKG: NSR, NO ST or ST wave changes noted Cxray: 1 view Chest x-ray was seen personally patient seems to have significant right-sided infiltrate however it shows significant improvement from yesterday's x-ray and pleural effusion is almost gone on that side Medications: Acetaminophen (Tylenol Suppository) 325 mg MT Q6H PRN; Protocol PRN Reason: Mild Pain or Fever above 100.4 Stop: 05/31/16 16:59 Last Admin: 05/18/16 20:00 Dose: 325 mg Acetaminophen (Tylenol Tablet) 325 mg PO Q6H PRN; Protocol PRN Reason: Mild Pain or Fever above 100.4 Stop: 05/31/16 16:59 Last Admin: 05/18/16 04:35 Dose: 325 mg Albuterol/Ipratropium (Duoneb) 3 ml NEB RTQ6 BIB Stop: 05/31/16 16:59 Last Admin: 05/21/16 14:10 Dose: 3 ml Atenolol (Tenormin) 50 mg PO DAILY [facility] Stop: 06/01/16 08:59 Last Admin: 05/21/16 07:41 Dose: 50 mg Levofloxacin/Dextrose (Levaquin 750 Mg) 750 mg in 150 mls @ 100 mls/hr IV Q24H [facility] Stop: 05/27/16 16:59 Last Admin: 05/21/16 07:41 Dose: 100 mls/hr Temazepam (Restoril) 15 mg PO 2100,2200 PRN PRN Reason: Sleep or Insomnia Stop: 05/31/16 16:59 Albuterol (Proventil, Ventolin) 3 ml NEB Q2H PRN PRN Reason: Wheezing Stop: 05/31/16 16:59 Last Admin: 05/19/16 07:51 Dose: 3 ml Benzonatate (Tessalon) 200 mg PO Q8H [facility] Stop: 05/31/16 19:59 Last Admin: 05/21/16 11:21 Dose: 200 mg Cetirizine HCl (Zyrtec) 10 mg PO DAILY [facility] Stop: 06/01/16 08:59 Last Admin: 05/21/16 07:41 Dose: 10 mg Chlorphenir/Hydrocodone Polistirex (Tussionex) 5 ml PO BID PRN PRN Reason: Cough Stop: 05/31/16 16:59 Enoxaparin Sodium (Lovenox) 40 mg SQ DAILY@1800 [facility] Stop: 06/01/16 17:59 Last Admin: 05/20/16 18:11 Dose: 40 mg Fluticasone Propionate (Flonase Nasal [place]) 2 sprays TAHMINA DAILY [facility] Stop: 06/01/16 08:59 Last Admin: 05/21/16 07:42 Dose: 2 spr Furosemide (Lasix) 40 mg IV LASBID [facility] Stop: 05/23/16 09:59 Last Admin: 05/21/16 11:22 Dose: 40 mg Hydrochlorothiazide (Hydrochlorothiazide) 25 mg PO DAILY(EDGARDO) [facility] Stop: 06/05/16 06:59 Lact Acid/Bifidobact/Lact [place]/Streptoc Th (Jory Q) 1 tab PO BIDLS [facility] Stop: 05/31/16 18:59 Last Admin: 05/21/16 11:21 Dose: 1 tab Lorazepam (Ativan) 1 mg PO Q4H PRN PRN Reason: Anxiety/Agitation Stop: 06/01/16 16:59 Last Admin: 05/18/16 05:11 Dose: 1 mg Montelukast Sodium (Singulair) 10 mg PO QHS [facility] Stop: 06/01/16 20:59 Last Admin: 05/21/16 00:07 Dose: 10 mg Oxycodone HCl (Oxycodone Immediate Release (Oxyir)) 5 mg PO Q4H PRN PRN Reason: MODERATE TO SEVERE PAIN Stop: 05/31/16 16:59 Last Admin: 05/18/16 04:32 Dose: 5 mg Pantoprazole Sodium (Protonix) 40 mg PO 0600 [facility] Stop: 06/01/16 05:59 Last Admin: 05/21/16 05:13 Dose: 40 mg Piperacillin Sod/Tazobactam (Sod 4.5 gm/ Dextrose) 100 mls @ 200 mls/hr IV Q6H [facility] Stop: 05/25/16 17:59 Last Admin: 05/21/16 11:22 Dose: 200 mls/hr - Assessment/Plan (1) Acute respiratory failure Acute J96.00 - ACUTE RESPIRATORY FAILURE, UNSP W HYPOXIA OR HYPERCAPNIA hypoxia J96.01 - Acute respiratory failure with hypoxia Comment/Plan: No change in current treatment. Would continue the current antibiotics on this patient keep the patient on BiPAP as needed currently patient is on Levaquin and Zosyn along with nebulizers would continue DVT and GI prophylaxis patient's condition is slowly improving would repeat a chest x-ray in the morning again PA and lateral view (2) Community acquired bacterial pneumonia Acute J15.9 - UNSPECIFIED BACTERIAL PNEUMONIA Comment/Plan: Continue the current antibiotic therapy on this patient . Continue oxygen nebulizers and supportive care (3) Hypoxia Acute R09.02 - HYPOXEMIA Comment/Plan: Continue oxygen and BiPAP as needed (4) Sepsis Acute A41.9 - SEPSIS, UNSPECIFIED ORGANISM sepsis due to unspecified organism A41.9 - Sepsis, unspecified organism Comment/Plan: Continue the current antibiotics including Levaquin and Zosyn
--- NOTE | 2016-05-22 08:06 | DIRPT ---
CLINICAL DATA: Respiratory failure. EXAM: PORTABLE CHEST 1 VIEW COMPARISON: 05/21/2016. CT 05/17/2016. FINDINGS: Mediastinum and hilar structures are normal. Stable cardiomegaly. Interim partial clearing of right upper lobe infiltrate and pleural thickening. Interim partial clearing of right pleural effusion. Surgical clips right axilla. IMPRESSION: Persistent but partially clearing of dense right upper lobe infiltrate and pleural thickening. Partial clearing of right pleural effusion. Electronically Signed By: Curtis Vickers On: 05/22/2016 08:04
[2016-05-22] MEDS: FLUTICASONE PROPIONATE 16 GM BOT NAS SCH (08:25)
[2016-05-22] MEDS: FUROSEMIDE 40 MG/4 ML VIAL IV SCH ×2 (08:25→15:05)
[2016-05-22] MEDS: SERTRALINE HCL 50 MG TAB PO SCH (08:26)
[2016-05-22] MEDS: ATENOLOL 50 MG TAB PO SCH (08:26)
[2016-05-22] MEDS: CETIRIZINE HCL 10 MG TAB PO SCH (08:26)
[2016-05-22] MEDS: Levofloxacin 750 mg/150 ml D5W 750 MG/150 ML RTU IV SCH (10:51)
[2016-05-22] MEDS: PROBIOTIC BLEND TAB PO SCH ×2 (12:28→18:26)
[2016-05-22 14:38] LABS: A-1-ANTITRYPSIN 331 mg/dL (90-200)
--- NOTE | 2016-05-22 17:28 | CAPUEKG ---
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
--- NOTE | 2016-05-22 17:42 | GENMEDPROG ---
Chief Complaint: less sob but nausea & vomiting this am p/ meds Notes Reviewed: Yes Events from last night noted and discussed with Clinical Staff Current Medication List: Reviewed Currently: Reports: Cough, Wheezing, MCHUGH, SOB. Denies: Nausea and Vomiting, Abdominal Pain, Chest Pain DVT Prophylaxis: Yes - Physical Examination Vital Signs and I&O: Last Vital Signs Temp 97.7 F 05/22/16 16:48 Pulse 89 05/22/16 16:48 Resp 22 05/22/16 16:48 BP 98/66 L 05/22/16 16:48 Pulse Ox 90 L 05/22/16 16:48 Oxygen Pulse Oxygen Saturation 90 O2 Device Nasal Cannula Oxygen Flow Rate 4 Fraction of Inspired Oxygen ( 45 FIO2) Intake & Output 05/19/16 05/20/16 05/21/16 05/22/16 23:59 23:59 23:59 23:59 Intake Total 2616 1503 1636 480 Output Total 1900 1460 981 3308 Balance 716 103 735 -1170 Patient's weight 82.1 kg 83.28 kg 82.242 kg 77.247 kg General: Oriented x3, Cooperative, Severe distress, Weakness, Fatigue. negative : Well appearing (Acutely ill-appearing) HEENT: Normal, PERRLA, EOMI, Anicteric Sclera Neck: Non-tender, Full range of motion, Normal Trachea alignment, Normal inspection. negative: JVD Lymphatics: Normal (No cervical lymphadenopathy. No supraclavicular lymphadenopathy.). negative: Adenopathy Respiratory: Diminished, Rhonchi, Wheezes (expiratory wheeze). negative: Rales Cardiovascular: Regular rate and rhythm, No Gallops,Rubs/Murmurs GI: Normal bowel sounds, Soft, Non tender, No hepatospenomegaly, No masses Extremities/Musculoskeletal: Normal pulses. negative: Tenderness, Swelling, Edema Skin: Warm,Dry and Intact, No rashes, No breakdown, No significant lesion Neurological: Normal speech, Strength at 5/5 X4 ext, Normal tone, Cranial nerves 3-12 NL Psych/Mental Status: Appropriate, Cooperative, Anxious Lab/DI/Studies Reviewed: 05/22/16 03:45 05/22/16 03:45 Laboratory Results - last 24 hr 05/20/16 05/22/16 05/22/16 10:30 03:45 03:45 WBC 11.4 H RBC 3.54 L Hgb 9.8 L Hct 29.3 L MCV 83 MCH 27.8 MCHC 33.5 RDW 14.8 H Plt Count 247 MPV 9.1 Neut % (Auto) Cancelled Lymph % (Auto) Cancelled Thomas % (Auto) Cancelled Eos % (Auto) Cancelled Baso % (Auto) Cancelled Absolute Neuts (auto) Cancelled Absolute Lymphs (auto) Cancelled Seg Neuts % (Manual) 79 H Band Neutrophils % 2 Lymphocytes % (Manual) 12 L Monocytes % (Manual) 6 Eosinophils % (Manual) 1 Absolute Neutrophils 9.23 H Absolute Lymphocytes 1.37 Vacuolated Neuts Few Toxic Granulation 2+ Platelet Estimate Norm RBC Morphology 1+ aniso Puncture Site pH pCO2 pO2 HCO3 Total CO2 Base Excess FiO2 % Specimen Drawn By Sodium 134 L Potassium 3.8 D Chloride 97 L Carbon Dioxide 28 Anion Gap 13 BUN 13 Creatinine 0.60 Estimated GFR (MDRD) > 60 Glucose 123 H Calculated Osmolality 259 L Calcium 8.4 Magnesium 1.80 [id number] 331 H Alpha-1-AT Phenotype Mm IgG 713 IgA 130 IgM 84 05/22/16 05/22/16 03:45 06:15 WBC RBC Hgb Hct MCV MCH MCHC RDW Plt Count MPV Neut % (Auto) Lymph % (Auto) Thomas % (Auto) Eos % (Auto) Baso % (Auto) Absolute Neuts (auto) Absolute Lymphs (auto) Seg Neuts % (Manual) Band Neutrophils % Lymphocytes % (Manual) Monocytes % (Manual) Eosinophils % (Manual) Absolute Neutrophils Absolute Lymphocytes Vacuolated Neuts Toxic Granulation Platelet Estimate RBC Morphology Puncture Site Left brachial pH 7.540 H pCO2 37.0 pO2 72.0 L HCO3 31.6 H Total CO2 32.7 H Base Excess 8.6 H FiO2 % 2 Specimen Drawn By Rakma Sodium Potassium 4.0 Chloride Carbon Dioxide Anion Gap BUN Creatinine Estimated GFR (MDRD) Glucose Calculated Osmolality Calcium Magnesium 1.80 Swqrc-4-Dbczgtgrgdl Alpha-1-AT Phenotype IgG IgA IgM - Assessment (1) Sepsis Acute A41.9 - SEPSIS, UNSPECIFIED ORGANISM Qualifiers: Sepsis type: sepsis due to unspecified organism Qualified Code(s): A41.9 - Sepsis, unspecified organism Comment/Plan: Fever better however continues to have severe respiratory distress due to pneumonia. Patient on Zosyn Levaquin. (2) Community acquired bacterial pneumonia Acute J15.9 - UNSPECIFIED BACTERIAL PNEUMONIA Comment/Plan: Treating as aspiration pneumonia given history of stroke. Continue Zosyn and Levaquin. Remains acutely ill. (3) Dysphagia Acute R13.10 - DYSPHAGIA, UNSPECIFIED Qualifiers: Dysphagia type: oropharyngeal phase Qualified Code(s): R13.12 - Dysphagia, oropharyngeal phase Comment/Plan: Speech therapy consult is ordered. (4) Cerebral arteriosclerosis with history of previous stroke Acute I67.2 - CEREBRAL ATHEROSCLEROSIS; Z86.73 - PRSNL HX OF TIA (TIA), AND CEREB INFRC W/O RESID DEFICITS Comment/Plan: Stroke noted on CT of brain and suspect dysphagia may have led to her pneumonia. (5) Hypoxia Acute R09.02 - HYPOXEMIA Comment/Plan: Associated with her severe right upper lobe pneumonia. (6) Hypokalemia Acute E87.6 - HYPOKALEMIA Comment/Plan: po potassium supp. (7) Acute renal failure Resolved N17.9 - ACUTE KIDNEY FAILURE, UNSPECIFIED Qualifiers: Acute renal failure type: with acute tubular necrosis Qualified Code(s): N17.0 - Acute kidney failure with tubular necrosis Comment/Plan: Resolved. IV fluids discontinued. Case Care Discussed with: Patient, Family, Nursing Staff, Resource Management Education/Counseling Given To: Patient, Family Member Education/Counseling Given Regarding: Diagnosis, Treatment Total Time: 38 min Critical Care: No Code: 98506 (12+)
[2016-05-22] MEDS: ENOXAPARIN 40 MG/0.4 ML PFS SQ SCH (18:26)
--- NOTE | 2016-05-22 20:12 | DIRPT ---
CLINICAL DATA: Respiratory failure. Asthma. Pneumonia. EXAM: CHEST 2 VIEW COMPARISON: 05/22/2016 FINDINGS: Right lung airspace again seen but shows interval improvement in the right upper lobe since prior study. Small right pleural effusion again noted. Left lung remains clear. Heart size is within normal limits. IMPRESSION: Right lung airspace disease, with interval improvement in right upper lobe. Persistent small right pleural effusion. Electronically Signed By: Krishna Bautista M.D. On: 05/22/2016 20:09
[2016-05-22] MEDS: MONTELUKAST SODIUM 10 MG TAB PO SCH (21:08)
[2016-05-23] MEDS: PIPERACILLIN AND TAZOBACTAM 4.5 GM in D5W 100 ML IV SCH ×5 (00:12→23:28)
[2016-05-23] MEDS: Albuterol/Ipratropium Neb 3 ML NEB NEB SCH ×4 (01:15→19:15)
[2016-05-23 03:42] LABS: BLOOD UREA NITROGEN 19 MG/DL (7-17); CALCIUM 8.5 MG/DL (8.4-10.2); CALCULATED OSMOLALITY 261 MOs/Kg (270-290); CHLORIDE 92 mEq/L (98-107); GLUCOSE 111 MG/DL (70-99); SODIUM LEVEL 134 mEq/L (137-146)
[2016-05-23 04:23] LABS: SEG NEUTROPHIL 67 % (45-76)
[2016-05-23] MEDS: HYDROCHLOROTHIAZIDE 25 MG TAB PO SCH (05:54)
[2016-05-23] MEDS: PANTOPRAZOLE 40 MG TAB PO SCH (05:54)
[2016-05-23] MEDS: BENZONATATE 100 MG PERLES PO SCH ×3 (05:54→21:26)
[2016-05-23] MEDS: ATENOLOL 50 MG TAB PO SCH (08:03)
[2016-05-23] MEDS: FUROSEMIDE 40 MG/4 ML VIAL IV SCH (08:04)
[2016-05-23] MEDS: FLUTICASONE PROPIONATE 16 GM BOT NAS SCH (08:04)
[2016-05-23] MEDS: SERTRALINE HCL 50 MG TAB PO SCH (08:05)
[2016-05-23] MEDS: PROBIOTIC BLEND TAB PO SCH ×2 (08:05→16:10)
[2016-05-23] MEDS: CETIRIZINE HCL 10 MG TAB PO SCH (08:05)
[2016-05-23] MEDS: Levofloxacin 750 mg/150 ml D5W 750 MG/150 ML RTU IV SCH (08:05)
--- NOTE | 2016-05-23 10:05 | PCM.PULM ---
Chief Complaint: Patient sitting on chair this morning feeling better. She is not coughing as much and breathing is getting better. Her at bedside this morning Current medication list reviewed:yes Notes reviewed:yes DVT prophylaxis:yes - Physical Examination Vital Signs and I&O: Last Vital Signs Temp 97.9 F 05/23/16 07:54 Pulse 90 05/23/16 09:51 Resp 20 05/23/16 07:54 BP 110/68 05/23/16 07:54 Pulse Ox 95 05/23/16 07:54 Oxygen Pulse Oxygen Saturation 95 O2 Device Nasal Cannula Oxygen Flow Rate 4 Fraction of Inspired Oxygen ( 45 FIO2) Intake & Output 05/20/16 05/21/16 05/22/16 05/23/16 23:59 23:59 23:59 23:59 Intake Total 1503 1636 1006 374 Output Total 1715 965 1483 Balance 103 735 -644 374 Patient's weight 83.28 kg 82.242 kg 77.247 kg 79.095 kg General: Alert, Oriented x3, No acute distress Respiratory: Diminished (bilaterally) Cardiovascular: Regular rate, Regular rate and rhythm, Normal S1, No Gallops, Rubs/Murmurs, Normal S2 GI: Normal bowel sounds, Soft, Non tender, No hepatospenomegaly, No masses Extremities/Musculoskeletal: Normal pulses Skin: Warm,Dry and Intact, No rashes, No breakdown Neurological: Normal Steady Gait, Normal speech, Strength at 5/5 X4 ext, Normal tone, Cranial nerves 3-12 NL, Reflexes 2+ Psych/Mental Status: Appropriate Result Diagrams: 05/23/16 03:00 05/23/16 03:00 Labs (last 24 hours): Laboratory Results - last 24 hr 05/20/16 05/23/16 05/23/16 10:30 03:00 03:00 WBC 13.8 H RBC 3.50 L Hgb 9.7 L Hct 29.1 L MCV 83 MCH 27.7 MCHC 33.4 RDW 14.3 Plt Count 306 MPV 9.0 Neut % (Auto) Cancelled Lymph % (Auto) Cancelled [place] % (Auto) Cancelled Eos % (Auto) Cancelled Baso % (Auto) Cancelled Absolute Neuts (auto) Cancelled Absolute Lymphs (auto) Cancelled Seg Neuts % (Manual) 67 Band Neutrophils % 0 Lymphocytes % (Manual) 28 Monocytes % (Manual) 3 Eosinophils % (Manual) 2 Absolute Neutrophils 9.25 H Absolute Lymphocytes 3.86 Platelet Estimate Occ giant platelet RBC Morphology Reviewed this admiss Sodium 134 L Potassium 3.3 L Chloride 92 L Carbon Dioxide 32 Anion Gap 13 BUN 19 H Creatinine 0.70 Estimated GFR (MDRD) > 60 Glucose 111 H Calculated Osmolality 261 L Calcium 8.5 Ixeld-1-Ljaxzqmexxk 331 H Alpha-1-AT Phenotype Mm IgG 713 IgA 130 IgM 84 Lab/DI/Studies Reviewed: EKG: NSR, NO ST or ST wave changes noted Chest x-ray Chest x-ray was seen personally patient seems to have significant improvement in right-sided infiltrate Part of the right upper lobe infiltrate and right lower lobe infiltrate still remains Medications Acetaminophen (Tylenol Suppository) 325 mg RI Q6H PRN; Protocol PRN Reason: Mild Pain or Fever above 100.4 Stop: 05/31/16 16:59 Last Admin: 05/18/16 20:00 Dose: 325 mg Acetaminophen (Tylenol Tablet) 325 mg PO Q6H PRN; Protocol PRN Reason: Mild Pain or Fever above 100.4 Stop: 05/31/16 16:59 Last Admin: 05/18/16 04:35 Dose: 325 mg Albuterol/Ipratropium (Duoneb) 3 ml NEB RTQ6 [facility] Stop: 05/31/16 16:59 Last Admin: 05/21/16 14:10 Dose: 3 ml Atenolol (Tenormin) 50 mg PO DAILY [facility] Stop: 06/01/16 08:59 Last Admin: 05/21/16 07:41 Dose: 50 mg Levofloxacin/Dextrose (Levaquin 750 Mg) 750 mg in 150 mls @ 100 mls/hr IV Q24H [facility] Stop: 05/27/16 16:59 Last Admin: 05/21/16 07:41 Dose: 100 mls/hr Temazepam (Restoril) 15 mg PO 2100,2200 PRN PRN Reason: Sleep or Insomnia Stop: 05/31/16 16:59 Albuterol (Proventil, Ventolin) 3 ml NEB Q2H PRN PRN Reason: Wheezing Stop: 05/31/16 16:59 Last Admin: 05/19/16 07:51 Dose: 3 ml Benzonatate (Tessalon) 200 mg PO Q8H [facility] Stop: 05/31/16 19:59 Last Admin: 05/21/16 11:21 Dose: 200 mg Cetirizine HCl (Zyrtec) 10 mg PO DAILY [facility] Stop: 06/01/16 08:59 Last Admin: 05/21/16 07:41 Dose: 10 mg Chlorphenir/Hydrocodone Polistirex (Tussionex) 5 ml PO BID PRN PRN Reason: Cough Stop: 05/31/16 16:59 Enoxaparin Sodium (Lovenox) 40 mg SQ DAILY@1800 [facility] Stop: 06/01/16 17:59 Last Admin: 05/20/16 18:11 Dose: 40 mg Fluticasone Propionate (Flonase Nasal [place]) 2 sprays TAHMINA DAILY [facility] Stop: 06/01/16 08:59 Last Admin: 05/21/16 07:42 Dose: 2 spr Hydrochlorothiazide (Hydrochlorothiazide) 25 mg PO DAILY(EDG[facility]O) [facility] Stop: 06/05/16 06:59 Lact Acid/Bifidobact/Lact [place]/Streptoc Th (Jory Q) 1 tab PO BIDLS [facility] Stop: 05/31/16 18:59 Last Admin: 05/21/16 11:21 Dose: 1 tab Lorazepam (Ativan) 1 mg PO Q4H PRN PRN Reason: Anxiety/Agitation Stop: 06/01/16 16:59 Last Admin: 05/18/16 05:11 Dose: 1 mg Montelukast Sodium (Singulair) 10 mg PO QHS [facility] Stop: 06/01/16 20:59 Last Admin: 05/21/16 00:07 Dose: 10 mg Oxycodone HCl (Oxycodone Immediate Release (Oxyir)) 5 mg PO Q4H PRN PRN Reason: MODERATE TO SEVERE PAIN Stop: 05/31/16 16:59 Last Admin: 05/18/16 04:32 Dose: 5 mg Pantoprazole Sodium (Protonix) 40 mg PO 0600 [facility] Stop: 06/01/16 05:59 Last Admin: 05/21/16 05:13 Dose: 40 mg Piperacillin Sod/Tazobactam (Sod 4.5 gm/ Dextrose) 100 mls @ 200 mls/hr IV Q6H [facility] Stop: 05/25/16 17:59 Last Admin: 05/21/16 11:22 Dose: 200 mls/hr Potassium Chloride (Klor-Con M20) 40 meq PO Q2H [facility] Stop: 05/21/16 17:01 Last Admin: 05/21/16 15:36 Dose: 40 meq Sertraline HCl (Zoloft) 50 mg PO DAILY [facility] Stop: 06/01/16 08:59 Last Admin: 05/21/16 07:41 Dose: 50 mg - Assessment/Plan (1) Acute respiratory failure Acute J96.00 - ACUTE RESPIRATORY FAILURE, UNSP W HYPOXIA OR HYPERCAPNIA hypoxia J96.01 - Acute respiratory failure with hypoxia Comment/Plan: Improving. Would continue duo nebulizer treatment, IV antibiotics, supplemental oxygen and GI/DVT prophylaxis and ambulation was encouraged. Continue full supportive care (2) Community acquired bacterial pneumonia Acute J15.9 - UNSPECIFIED BACTERIAL PNEUMONIA Comment/Plan: Improving. Continue the current antibiotic therapy (3) Hypoxia Acute R09.02 - HYPOXEMIA Comment/Plan: Continue oxygen and BIPAP prn (4) Sepsis Acute A41.9 - SEPSIS, UNSPECIFIED ORGANISM sepsis due to unspecified organism A41.9 - Sepsis, unspecified organism Comment/Plan: Continue IV antibiotics
[2016-05-23 12:27] VITALS: TEMP 97.9
--- NOTE | 2016-05-23 15:18 | GENMEDPROG ---
Chief Complaint: feeling better less cough and sob Notes Reviewed: Yes Events from last night noted and discussed with Clinical Staff Current Medication List: Reviewed Currently: Reports: Cough, Wheezing, MCHUGH, SOB. Denies: Nausea and Vomiting, Abdominal Pain, Chest Pain DVT Prophylaxis: Yes - Physical Examination Vital Signs and I&O: Last Vital Signs Temp 97.8 F 05/23/16 11:07 Pulse 84 05/23/16 14:00 Resp 18 05/23/16 11:07 BP 88/53 L 05/23/16 11:07 Pulse Ox 98 05/23/16 13:33 Oxygen Pulse Oxygen Saturation 98 O2 Device Nasal Cannula Oxygen Flow Rate 4 Fraction of Inspired Oxygen ( 45 FIO2) Intake & Output 05/20/16 05/21/16 05/22/16 05/23/16 23:59 23:59 23:59 23:59 Intake Total 1503 1636 1006 854 Output Total 3829 203 6440 Balance 103 735 -644 854 Patient's weight 83.28 kg 82.242 kg 77.247 kg 79.095 kg General: Oriented x3, Cooperative, Severe distress, Weakness, Fatigue. negative : Well appearing (Acutely ill-appearing) HEENT: Normal, PERRLA, EOMI, Anicteric Sclera Neck: Non-tender, Full range of motion, Normal Trachea alignment, Normal inspection. negative: JVD Lymphatics: Normal (No cervical lymphadenopathy. No supraclavicular lymphadenopathy.). negative: Adenopathy Respiratory: Diminished, Rhonchi, Wheezes (expiratory wheeze). negative: Rales Cardiovascular: Regular rate and rhythm, No Gallops,Rubs/Murmurs GI: Normal bowel sounds, Soft, Non tender, No hepatospenomegaly, No masses Extremities/Musculoskeletal: Normal pulses. negative: Tenderness, Swelling, Edema Skin: Warm,Dry and Intact, No rashes, No breakdown, No significant lesion Neurological: Normal speech, Strength at 5/5 X4 ext, Normal tone, Cranial nerves 3-12 NL Psych/Mental Status: Appropriate, Cooperative, Anxious Lab/DI/Studies Reviewed: 05/23/16 03:00 05/23/16 03:00 Laboratory Results - last 24 hr 05/23/16 05/23/16 03:00 03:00 WBC 13.8 H RBC 3.50 L Hgb 9.7 L Hct 29.1 L MCV 83 MCH 27.7 MCHC 33.4 RDW 14.3 Plt Count 306 MPV 9.0 Neut % (Auto) Cancelled Lymph % (Auto) Cancelled [place] % (Auto) Cancelled Eos % (Auto) Cancelled Baso % (Auto) Cancelled Absolute Neuts (auto) Cancelled Absolute Lymphs (auto) Cancelled Seg Neuts % (Manual) 67 Band Neutrophils % 0 Lymphocytes % (Manual) 28 Monocytes % (Manual) 3 Eosinophils % (Manual) 2 Absolute Neutrophils 9.25 H Absolute Lymphocytes 3.86 Platelet Estimate Occ giant platelet RBC Morphology Reviewed this admiss Sodium 134 L Potassium 3.3 L Chloride 92 L Carbon Dioxide 32 Anion Gap 13 BUN 19 H Creatinine 0.70 Estimated GFR (MDRD) > 60 Glucose 111 H Calculated Osmolality 261 L Calcium 8.5 - Assessment (1) Sepsis Acute A41.9 - SEPSIS, UNSPECIFIED ORGANISM Qualifiers: Sepsis type: sepsis due to unspecified organism Qualified Code(s): A41.9 - Sepsis, unspecified organism Comment/Plan: Fever better however continues to have severe respiratory distress due to pneumonia. Patient on Zosyn Levaquin. (2) Community acquired bacterial pneumonia Acute J15.9 - UNSPECIFIED BACTERIAL PNEUMONIA Comment/Plan: Speech therapy indicates that she has done well on the swallowing evaluation that it is unlikely that she has aspiration as the etiology of her pneumonia. She appears to be tolerating the Zosyn and Levaquin. Probably discharge in a.m.. (3) Hypokalemia Acute E87.6 - HYPOKALEMIA Comment/Plan: po potassium supp. (4) Dysphagia Acute R13.10 - DYSPHAGIA, UNSPECIFIED Qualifiers: Dysphagia type: oropharyngeal phase Qualified Code(s): R13.12 - Dysphagia, oropharyngeal phase Comment/Plan: Speech therapy feels that pneumonia is not related to aspiration events and that her swallowing precautions should be lifted. (5) Cerebral arteriosclerosis with history of previous stroke Acute I67.2 - CEREBRAL ATHEROSCLEROSIS; Z86.73 - PRSNL HX OF TIA (TIA), AND CEREB INFRC W/O RESID DEFICITS Comment/Plan: Stroke noted on CT of brain and suspect dysphagia may have led to her pneumonia. (6) Hypoxia Acute R09.02 - HYPOXEMIA Comment/Plan: Associated with her severe right upper lobe pneumonia. (7) Acute renal failure Resolved N17.9 - ACUTE KIDNEY FAILURE, UNSPECIFIED Qualifiers: Acute renal failure type: with acute tubular necrosis Qualified Code(s): N17.0 - Acute kidney failure with tubular necrosis Comment/Plan: Resolved. IV fluids discontinued. Disposition Plan: d/c home in am Case Care Discussed with: Patient, Nursing Staff Education/Counseling Given To: Patient Education/Counseling Given Regarding: Diagnosis Total Time: 39 min Critical Care: No Code: 29495 (12+)
[2016-05-23] MEDS: POTASSIUM CHLORIDE 20 MEQ TAB PO SCH ×3 (16:10→21:26)
[2016-05-23] MEDS: ENOXAPARIN 40 MG/0.4 ML PFS SQ SCH (16:10)
[2016-05-23] MEDS ORDERED: FUROSEMIDE 40 MG/4 ML VIAL IV ONE (18:53)
[2016-05-23] MEDS: MONTELUKAST SODIUM 10 MG TAB PO SCH (21:26)
[2016-05-24] MEDS: Albuterol/Ipratropium Neb 3 ML NEB NEB SCH ×2 (01:08→07:40)
[2016-05-24 03:14] LABS: MPV 8.9 fL (7.4-10.4)
[2016-05-24 03:25] LABS: BLOOD UREA NITROGEN 22 MG/DL (7-17); CALCIUM 8.6 MG/DL (8.4-10.2); CALCULATED OSMOLALITY 263 MOs/Kg (270-290); CHLORIDE 95 mEq/L (98-107); GLUCOSE 106 MG/DL (70-99); SODIUM LEVEL 135 mEq/L (137-146)
[2016-05-24 03:35] LABS: SEG NEUTROPHIL 88 % (45-76)
[2016-05-24] MEDS: BENZONATATE 100 MG PERLES PO SCH (04:57)
[2016-05-24] MEDS: PIPERACILLIN AND TAZOBACTAM 4.5 GM in D5W 100 ML IV SCH (04:57)
[2016-05-24] MEDS: PANTOPRAZOLE 40 MG TAB PO SCH (04:57)
[2016-05-24 05:18] VITALS: BMI 24.9
[2016-05-24 07:29] VITALS: PULSE 84
[2016-05-24 07:38] VITALS: BP 103/61; TEMP 98
--- NOTE | 2016-05-24 08:16 | PCM.DCS92 ---
- Final/Secondary Discharge Diagnosis (1) Sepsis Acute A41.9 - SEPSIS, UNSPECIFIED ORGANISM Present on Admission: Yes sepsis due to unspecified organism A41.9 - Sepsis, unspecified organism Comment: Fever better however continues to have severe respiratory distress due to pneumonia. Patient on Zosyn Levaquin. (2) Community acquired bacterial pneumonia Acute J15.9 - UNSPECIFIED BACTERIAL PNEUMONIA Present on Admission: Yes Comment: Speech therapy indicates that she has done well on the swallowing evaluation that it is unlikely that she has aspiration as the etiology of her pneumonia. She appears to be tolerating the Zosyn and Levaquin. Probably discharge in a.m.. (3) Hypokalemia Acute E87.6 - HYPOKALEMIA Present on Admission: Yes Comment: po potassium supp. (4) Dysphagia Acute R13.10 - DYSPHAGIA, UNSPECIFIED Present on Admission: Yes oropharyngeal phase R13.12 - Dysphagia, oropharyngeal phase Comment: Speech therapy feels that pneumonia is not related to aspiration events and that her swallowing precautions should be lifted. (5) Cerebral arteriosclerosis with history of previous stroke Acute I67.2 - CEREBRAL ATHEROSCLEROSIS; Z86.73 - PRSNL HX OF TIA (TIA), AND CEREB INFRC W/O RESID DEFICITS Present on Admission: Yes Comment: Stroke noted on CT of brain and suspect dysphagia may have led to her pneumonia. (6) Hypoxia Acute R09.02 - HYPOXEMIA Present on Admission: Yes Comment: Associated with her severe right upper lobe pneumonia. (7) Acute renal failure Resolved N17.9 - ACUTE KIDNEY FAILURE, UNSPECIFIED Present on Admission: Yes with acute tubular necrosis N17.0 - Acute kidney failure with tubular necrosis Comment: Resolved. IV fluids discontinued. Discharge Disposition: Home Discharge Condition: Good Cognitive Discharge Status: Unimpaired Fuctional Discharge Status: Independent Physician Follow up/Referrals: Nataly Wilson MD [Primary Care Provider] - One Week New Prescriptions: Amoxicillin/Potassium Clav [Augmentin 875-125 Tablet] 1 each PO BID #6 tablet Probiotic Blend [Jory Q] 1 tab PO BIDLS #20 tablet Discharge Home Medication List Aspirin [Ecotrin] 81 mg PO DAILY 05/18/16 [History Confirmed 05/18/16 Last Taken 05/17/16] Atenolol [Tenormin] 50 mg PO DAILY 05/18/16 [History Confirmed 05/18/16 Last Taken 05/17/16] Cetirizine HCl [Zyrtec] 10 mg PO DAILY(EDGARDO) 05/18/16 [History Confirmed Last Taken 05/17/16] Fluticasone Propionate [Flonase] 2 spray TAHMINA DAILY 05/18/16 [History Confirmed 05/18/16 Last Taken 05/17/16] Gluc 2Kcl/Chondr/Jerson Hy/Hy AC [Glucosamine & Chondroitin Cap] 1 cap PO DAILY [History Confirmed 05/18/16 Last Taken Unknown] Hydrochlorothiazide 25 mg PO DAILY(EDGARDO) 05/18/16 [History Confirmed 05/18/16 Last Taken 05/17/16] Montelukast Sodium [Singulair] 10 mg PO QHS 05/18/16 [History Confirmed Last Taken 05/17/16] Multivits-Min/Iron/FA/Lutein [Centrum Silver Women Tablet] 1 tab PO DAILY [History Confirmed 05/18/16 Last Taken Unknown] Omeprazole [Prilosec] 40 mg PO DAILY 05/18/16 [History Confirmed 05/18/16 Last Taken 05/17/16] Sertraline HCl [Zoloft] 50 mg PO DAILY 05/18/16 [History Confirmed 05/18/16 Last Taken 05/17/16] Amoxicillin/Potassium Clav [Augmentin 875-125 Tablet] 1 each PO BID #6 tablet [Rx Last Taken Unknown] Probiotic Blend [Jory Q] 1 tab PO BIDLS #20 tablet 05/24/16 [Rx Last Taken Unknown] 05/24/16 02:20 05/24/16 02:20 Laboratory Results - last 24 hr 05/24/16 05/24/16 02:20 02:20 WBC 12.1 H RBC 3.43 L Hgb 9.6 L Hct 28.9 L MCV 84 MCH 28.1 MCHC 33.3 RDW 14.6 H Plt Count 343 MPV 8.9 Neut % (Auto) Cancelled Lymph % (Auto) Cancelled [place] % (Auto) Cancelled Eos % (Auto) Cancelled Baso % (Auto) Cancelled Absolute Neuts (auto) Cancelled Absolute Lymphs (auto) Cancelled Seg Neuts % (Manual) 88 H Band Neutrophils % 3 Lymphocytes % (Manual) 6 L Monocytes % (Manual) 1 Eosinophils % (Manual) 2 Absolute Neutrophils 11.01 H Absolute Lymphocytes 0.73 Toxic Granulation 1+ Platelet Estimate Large plts present RBC Morphology 1+ aniso Sodium 135 L Potassium 3.8 Chloride 95 L Carbon Dioxide 32 Anion Gap 12 BUN 22 H Creatinine 0.90 Estimated GFR (MDRD) > 60 Glucose 106 H Calculated Osmolality 263 L Calcium 8.6 Mdh-O-Uwonkzvdexg Pept 234 O2 Device: Nasal Cannula Diet at Discharge: Regular Activity: As Tolerated - DC Summary Notes HPI/Notes: Patient very pleasant 56-year-old white female who comes in the emergency room surrounded by her family today with a 4 day history of sore throat worsening cough and developed a fever 2 nights ago with hemoptysis last night. She complains of right-sided chest pain that is sharp and pleuritic in nature with deep breath or cough. She has a history of pneumonia 2005. She also mentions she had breast cancer treated 1998 and and received intravenous chemotherapy. She was told that she was cancer free 1999 but still gets follow- ups. She also mentions some mild diarrhea recently. She also tells me that she had a Port-A-Cath clot with what sounds like a saddle pulmonary embolus back in 1998. She indicated that she was quite ill at that point time. She also tells me she thinks she had a stroke when she developed some left facial discomfort and then in 2013 a workup of her headache showed a left basal gangliar stroke that was not present on her brain MRI January 2011. Her CT and chest x-ray show evidence a dense right upper lobe pulmonary infiltrate/ consolidation. She denies any exposure to anyone with tuberculosis and has not had a history of TB. She quit smoking 2 years ago. Hospital Course Note:: Discharge summary on patient named LUCRETIA SUNSHINE admitted to [facility] on 05/17/16 by Anderson Martinez MD. Date of discharge is []. CC: Dr. Wilson Total Time: 41 min Code: 19366 (>30min.) - Physical Exam Vital Signs: Last Vital Signs Temp 98.0 F 05/24/16 07:37 Pulse 84 05/24/16 07:37 Resp 20 05/24/16 07:37 BP 103/61 05/24/16 07:37 Pulse Ox 95 05/24/16 07:40 Oxygen Pulse Oxygen Saturation 95 O2 Device Nasal Cannula Oxygen Flow Rate 1 Fraction of Inspired Oxygen ( 45 FIO2) Constitutional: No apparent distress, Alert (Awake, Fully oriented. Normal and appropriate affect.Well appearing. Well nourished.) Oriented to: Time, Person, Place - HEENT Head: Normal (normocephalic, atraumatic.), Other (No cervical lymphadenopathy. No supraclavicular lymphadenopathy. Neck: No palpable mass, supple , trachea midline.) Eye: Normal (pupils equal, reactive to light, and round; EOMI, Sclera white) Oropharynx: Normal (Pharynx: Moist without exudate,Gums-no swelling, No oropharyngeal lesions or erythema, Mucous membranes are dry.) ENT EAC: Normal (No oropharyngeal lesions or erythema. Mucous membranes are dry. ) TMJ: Normal Nose: No Symptoms Reported (septum midline, Nares patent, without discharge or bleeding.) - Respiratory/Cardiovascular Respiratory: Diminished, Rhonchi, Wheezes (expiratory wheeze). negative: Rales Cardiovascular: Normal (RRR , Normal S1, S2. No murmurs, rubs, or gallops. PMI non-displaced. Carotids: no carotid bruits. No bradycardia or tachycardia. DP pulses 2+ bilaterally.) - GI Auscultation: Normal (normal active sounds) Palpation: Normal (Soft,non distended,nontender. No hepatosplenomegaly.) Tenderness: Non tender (No rebound or guarding) Kendall's Sign: Negative - Musculoskeletal Back: Normal (Non-Tender) Extremities: Normal (Normal tone, DP pulses 2+ bilaterally, No cyanosis or edema bilaterally, FROM bilaterally.) - Integumentary Skin: Normal (Warm dry no rashes) Lymphatics: Normal (No cervical lymphadenopathy. No supraclavicular lymphadenopathy.). negative: Adenopathy - Neurologic Memory Impaired: Normal Motor Function: Normal (Motor 5/5 throughout.Normal tone, Pulses 2+ No cyanosis or edema, FROM) Cranial Nerve: Normal (CN II-XII intact sensation, strength 5/5) Cerebellar: Normal. negative: Ataxia, Past-Pointing, Tremor Mood Description: Normal (Fully oriented. Normal and appropriate affect.) Thought: Coherent Perception: Normal (Normal and appropriate affect.)
--- NOTE | 2016-05-24 10:10 | PCM.PULM ---
Chief Complaint: Uneventful overnight Patient is feeling a whole lot better. Not much of cough or shortness of breath. She is going to be discharged home soon Current medication list reviewed:yes Notes reviewed:yes, Events from last night noted and discussed with Clinical Staff - Physical Examination Vital Signs and I&O: Last Vital Signs Temp 98.0 F 05/24/16 07:37 Pulse 84 05/24/16 07:37 Resp 20 05/24/16 07:37 BP 103/61 05/24/16 07:37 Pulse Ox 92 05/24/16 09:00 Oxygen Pulse Oxygen Saturation 92 O2 Device Nasal Cannula Oxygen Flow Rate 1 Fraction of Inspired Oxygen ( 45 FIO2) Intake & Output 05/21/16 05/22/16 05/23/16 05/24/16 23:59 23:59 23:59 23:59 Intake Total 1636 1006 1247 381 Output Total 901 1650 Balance 735 644 1247 381 Patient's weight 82.242 kg 77.247 kg 79.095 kg 76.612 kg General: Alert, Oriented x3, No acute distress Respiratory: Normal - CTA Cardiovascular: Regular rate, Regular rate and rhythm, Normal S1, No Gallops, Rubs/Murmurs, Normal S2 GI: Normal bowel sounds, Soft, Non tender, No hepatospenomegaly, No masses Extremities/Musculoskeletal: Normal pulses Skin: Warm,Dry and Intact, No rashes, No breakdown, No significant lesion Neurological: Normal Steady Gait, Normal speech, Strength at 5/5 X4 ext, Cranial nerves 3-12 NL, Reflexes 2+ Psych/Mental Status: Normal Affect Result Diagrams: 05/24/16 02:20 05/24/16 02:20 Labs (last 24 hours): Laboratory Results - last 24 hr 05/24/16 05/24/16 02:20 02:20 WBC 12.1 H RBC 3.43 L Hgb 9.6 L Hct 28.9 L MCV 84 MCH 28.1 MCHC 33.3 RDW 14.6 H Plt Count 343 MPV 8.9 Neut % (Auto) Cancelled Lymph % (Auto) Cancelled [place] % (Auto) Cancelled Eos % (Auto) Cancelled Baso % (Auto) Cancelled Absolute Neuts (auto) Cancelled Absolute Lymphs (auto) Cancelled Seg Neuts % (Manual) 88 H Band Neutrophils % 3 Lymphocytes % (Manual) 6 L Monocytes % (Manual) 1 Eosinophils % (Manual) 2 Absolute Neutrophils 11.01 H Absolute Lymphocytes 0.73 Toxic Granulation 1+ Platelet Estimate Large plts present RBC Morphology 1+ aniso Sodium 135 L Potassium 3.8 Chloride 95 L Carbon Dioxide 32 Anion Gap 12 BUN 22 H Creatinine 0.90 Estimated GFR (MDRD) > 60 Glucose 106 H Calculated Osmolality 263 L Calcium 8.6 Nol-Z-Iiddfwoxmle Pept 234 Lab/DI/Studies Reviewed: EKG: NSR, NO ST or ST wave changes noted Medications Acetaminophen (Tylenol Suppository) 325 mg MO Q6H PRN; Protocol PRN Reason: Mild Pain or Fever above 100.4 Stop: 05/31/16 16:59 Last Admin: 05/18/16 20:00 Dose: 325 mg Acetaminophen (Tylenol Tablet) 325 mg PO Q6H PRN; Protocol PRN Reason: Mild Pain or Fever above 100.4 Stop: 05/31/16 16:59 Last Admin: 05/18/16 04:35 Dose: 325 mg Albuterol/Ipratropium (Duoneb) 3 ml NEB RTQ6 [facility] Stop: 05/31/16 16:59 Last Admin: 05/21/16 14:10 Dose: 3 ml Atenolol (Tenormin) 50 mg PO DAILY [facility] Stop: 06/01/16 08:59 Last Admin: 05/21/16 07:41 Dose: 50 mg Levofloxacin/Dextrose (Levaquin 750 Mg) 750 mg in 150 mls @ 100 mls/hr IV Q24H BIB Stop: 05/27/16 16:59 Last Admin: 05/21/16 07:41 Dose: 100 mls/hr Temazepam (Restoril) 15 mg PO 2100,2200 PRN PRN Reason: Sleep or Insomnia Stop: 05/31/16 16:59 Albuterol (Proventil, Ventolin) 3 ml NEB Q2H PRN PRN Reason: Wheezing Stop: 05/31/16 16:59 Last Admin: 05/19/16 07:51 Dose: 3 ml Benzonatate (Tessalon) 200 mg PO Q8H BIB Stop: 05/31/16 19:59 Last Admin: 05/21/16 11:21 Dose: 200 mg Cetirizine HCl (Zyrtec) 10 mg PO DAILY [facility] Stop: 06/01/16 08:59 Last Admin: 05/21/16 07:41 Dose: 10 mg Chlorphenir/Hydrocodone Polistirex (Tussionex) 5 ml PO BID PRN PRN Reason: Cough Stop: 05/31/16 16:59 Enoxaparin Sodium (Lovenox) 40 mg SQ DAILY@1800 [facility] Stop: 06/01/16 17:59 Last Admin: 05/20/16 18:11 Dose: 40 mg Fluticasone Propionate (Flonase Nasal [place]) 2 sprays TAHMINA DAILY [facility] Stop: 06/01/16 08:59 Last Admin: 05/21/16 07:42 Dose: 2 spr Furosemide (Lasix) 40 mg IV LASBID [facility] Stop: 05/23/16 09:59 Last Admin: 05/21/16 11:22 Dose: 40 mg Hydrochlorothiazide (Hydrochlorothiazide) 25 mg PO DAILY(EDGARDO) [facility] Stop: 06/05/16 06:59 Lact Acid/Bifidobact/Lact [place]/Streptoc Th (Jory Q) 1 tab PO BIDLS [facility] Stop: 05/31/16 18:59 Last Admin: 05/21/16 11:21 Dose: 1 tab Lorazepam (Ativan) 1 mg PO Q4H PRN PRN Reason: Anxiety/Agitation Stop: 06/01/16 16:59 Last Admin: 05/18/16 05:11 Dose: 1 mg Montelukast Sodium (Singulair) 10 mg PO QHS [facility] Stop: 06/01/16 20:59 Last Admin: 05/21/16 00:07 Dose: 10 mg Oxycodone HCl (Oxycodone Immediate Release (Oxyir)) 5 mg PO Q4H PRN PRN Reason: MODERATE TO SEVERE PAIN Stop: 05/31/16 16:59 Last Admin: 05/18/16 04:32 Dose: 5 mg Pantoprazole Sodium (Protonix) 40 mg PO 0600 [facility] Stop: 06/01/16 05:59 Last Admin: 05/21/16 05:13 Dose: 40 mg Piperacillin Sod/Tazobactam (Sod 4.5 gm/ Dextrose) 100 mls @ 200 mls/hr IV Q6H [facility] Stop: 05/25/16 17:59 Last Admin: 05/21/16 11:22 Dose: 200 mls/hr Sertraline HCl (Zoloft) 50 mg PO DAILY BIB Stop: 06/01/16 08:59 Last Admin: 05/21/16 07:41 Dose: 50 mg - Assessment/Plan (1) Acute respiratory failure Acute J96.00 - ACUTE RESPIRATORY FAILURE, UNSP W HYPOXIA OR HYPERCAPNIA hypoxia J96.01 - Acute respiratory failure with hypoxia Comment/Plan: Improved significantly. Patient may be discharged home soon. Would continue PO antibiotics total of ten days. Will follow up with patient in out patient clinic with in one week. (2) Community acquired bacterial pneumonia Acute J15.9 - UNSPECIFIED BACTERIAL PNEUMONIA Comment/Plan: Improved. Continue PO antibiotic (3) Hypoxia Acute R09.02 - HYPOXEMIA Comment/Plan: Improved (4) Sepsis Acute A41.9 - SEPSIS, UNSPECIFIED ORGANISM sepsis due to unspecified organism A41.9 - Sepsis, unspecified organism Comment/Plan: Resolved
== END 2016-05-24 10:29 | disposition home or self-care (01) | DRG 871 ==
LOC: ED 15:58 → PCU 18:39 → ICU 05-20 13:39 → PCU 05-22 02:30
PROVIDERS: ADMIT Internal Medicine; ATTEND Internal Medicine
PROC: 039C3ZZ Drainage of Left Radial Artery, Percutaneous Approach (ICD-10-PCS; principal; 2016-05-17)
PROC: 5A09457 Assistance with Respiratory Ventilation, 24-96 Consecutive Hours, Continuous Positive Airway Pressure (ICD-10-PCS; 2016-05-20)
DX: A41.9 Sepsis, unspecified organism (principal); J18.9 Pneumonia, unspecified organism; N17.0 Acute kidney failure with tubular necrosis; J96.01 Acute respiratory failure with hypoxia; R13.12 Dysphagia, oropharyngeal phase; I67.2 Cerebral atherosclerosis; J44.0 Chronic obstructive pulmonary disease with (acute) lower respiratory infection; R04.2 Hemoptysis; E87.6 Hypokalemia; Z86.73 Personal history of transient ischemic attack (TIA), and cerebral infarction without residual deficits; Z85.3 Personal history of malignant neoplasm of breast; I10 Essential (primary) hypertension; J45.909 Unspecified asthma, uncomplicated; K21.9 Gastro-esophageal reflux disease without esophagitis; F32.9 Major depressive disorder, single episode, unspecified; Z87.891 Personal history of nicotine dependence; I48.91 Unspecified atrial fibrillation
CPT/HCPCS: 36415; 36600; 71010; 71020; 71250; 76770; 80048; 80053; 81001; 82104; 82784; 82803; 82962; 83735; 83880; 84132; 84443; 84484; 85007; 85027; 85610; 85730; 87040; 87086; 87641; 87804; 92523; 93005; 93306; 94640; 94660; 96361; 96365; 96372; 96375; 97161; 98960; 99284; G0237; J0456; J0696; J1650; J1940; J1956; J2405; J2543; J2550; J3475; J3480; J3490; J7040; J7060; J7070; J7620